=== PATIENT | male | born 1970 | race Caucasian/White ===

== ENCOUNTER 2023-04-05 09:42 | Inpatient (IN) ==
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
--- NOTE | 2023-04-05 10:59 | XRay Report ---
CLINICAL INFORMATION: Dyspnea and edema COMPARISON: None. TECHNIQUE: PA and Lateral views FINDINGS: The heart is mildly enlarged. Mediastinum is unremarkable. There is mild upper lobe redistribution of pulmonary vasculature and equivocal CELINA B lines the lateral bases. No infiltrates. Small bilateral pleural effusions noted. IMPRESSION: Mild CHF or volume overload. Interpreted and Authenticated by: Ghassan Arevalo 04/05/23
[2023-04-05 11:06] LABS: POC Calcium, Ionized 1.03 (1.16-1.32); POC Potassium 4.8 (3.3-5.1)
[2023-04-05] MEDS ORDERED: FUROSEMIDE 40 MG/4 ML VIAL IV ONE (11:18)
[2023-04-05 11:29] LABS: Basophils # (Auto) 0.05 K/mcL (0.00-0.30); Basophils % (Auto) 0.5 % (0.0-2.0); Eosinophils # (Auto) 0.07 K/mcL (0.00-0.70); Eosinophils % (Auto) 0.6 % (0.0-7.0); Hematocrit 60.8 % (40.1-51.0); Hemoglobin 18.7 g/dL (13.7-17.5); Lymphocytes # (Auto) 1.81 K/mcL (1.50-4.80); Lymphocytes % (Auto) 16.7 % (15.5-49.0); Mean Cell Volume 96.2 fL (80.0-100.0); Mean Corpuscular HGB Conc 30.8 g/dL (31.0-36.0); Mean Platelet Volume 9.4 fL (8.8-12.5); Monocytes # (Auto) 1.09 K/mcL (0.10-0.90); Neutrophils % (Auto) 71.8 % (38.0-78.0); Platelet Count 232 K/mcL (140-440); RBC 6.32 M/mcL (4.63-6.08); Red Cell Distribution Width 14.8 % (11.5-14.5); WBC 10.9 K/mcL (4.5-11.0)
[2023-04-05 11:58] LABS: ALT/SGPT 24 U/L (<40); AST/SGOT 22 U/L (<40); Alkaline Phosphatase 79 U/L (39-117); Bilirubin,Direct 0.5 mg/dL (<0.3); Globulin 2.9 gm/dL (2.2-3.7)
[2023-04-05] MEDS ORDERED: NICOTINE 21 MG PATCH TOPICAL ONE (13:23)
--- NOTE | 2023-04-05 14:29 | Internal Med History&Physical ---
HPI History of Present Illness Patient information: Note initiated : 04/05/23 at 2:21 pm Service Date, if different from initiated Date: [] Patient: Souleymane Harmon a 52 y/o M admitted on for Swollen fet and legs. Chief Complaint: [] History of present illness: Mr. Harmon is a 52 year old M Presents to the ED with swelling of his lower extremities up to the abdomen. Patient came in because he says his mother was adamant he come in. Patient states he had swelling off and on for the past couple years although has been worse lately but could not give me a timeframe. Patient sleeps in chair but says he only does because he does not have a bed denies feeling short of breath if he lays flat. Patient has not seen a doctor in who knows how long he could not give me a timeframe but it sounds like decades. He denies any shortness of breath denies any coughing. Denies any cardiac history Patient smokes a pack per day. Denies alcohol use or drug use In the ED was evaluated and found to be hypoxic in the low 80s put on oxygen. Work-up revealed chest ago pulmonary edema with elevated BNP. EKG showed sinus tach and he had a negative troponin. Patient started on Lasix in the ED and oxygen. Patient almost left AMA but his mother convinced him to stay. pt quite drowsy, difficult to awaken when I went into room. very drowsy while I was talking to him. obtain vbg with co2 82 and pH borderline on venous at 3.2, seems to be heading toward hypercapnic resp failure or more likely in the early stages of. Bipap ordered. Review of Systems: Pertinent positives as above. Denies headache/fever/chills/nausea/vomiting/chest or abdominal pain/diarrhea. Remaining 10 point review of system reviewed negative PHYSICAL EXAM General: lethargic, No acute Distress, morbidly obese Eyes/N/T: EOMI, no scleral icterus, PERRL, Head/Neck: neck supple, full ROM, normocephalic atraumatic CV: Mildly tacky but regular, No murmurs, normal s1/s2 Pulm: rales and squeaks b/l, no wheezing, no respiratory distress Abd: soft, nontender, +BS x4 Ext: no clubbing/cyanosis, 3+ b/l LE edema up to abdomen, nontender, venous stasis changes Neuro: difficult to awake, answers questions slowly and quite groggy, Alert, CN 2-12 grossly intact, no focal deficits, moves all extremities, , sensations intact b/l upper/lower Psychiatric: Skin: warm/dry, normal color PFSH PFSH All Active Problems (Updated 04/05/23 @ 14:12 by Marlon Henderson DNP) Edema (Acute) Hypoxia (Acute) Nicotine dependence (Acute) CHF (congestive heart failure) (Acute) Social History smoking status: Current every day smoker MEDS/ALLERGIES Home Medications and Allergies Allergies Allergy/AdvReac Type Severity Reaction Status Date / Time No Known Drug Allergies Allergy Verified 04/05/23 09:51 EXAM Constitutional Vitals: Temp Pulse Resp BP Pulse Ox O2 Del Method O2 Flow Rate 96.9 F L 103 H 27 H 118/76 91 Nasal Cannula 4 04/05/23 09:45 04/05/23 14:04 04/05/23 11:49 04/05/23 14:01 04/05/23 14:05 04/05/23 14:05 04/05/23 14:05 DATA Data Completed and Pending Labs: Labs from last 24 hours 04/05/23 04/05/23 04/05/23 11:05 11:03 10:55 WBC RBC Hgb Hct POC Hct 64.0 H MCV MCH MCHC RDW Plt Count MPV Immature Gran % (Auto) Neut % (Auto) Lymph % (Auto) [place] % (Auto) Eos % (Auto) Baso % (Auto) Lymph # (Auto) [place] # (Auto) Eos # (Auto) Baso # (Auto) Immature Gran # Absolute Neutrophils POC Sodium 135 POC Potassium 4.8 POC Chloride 91 L POC Total CO2 37.0 H POC Anion Gap 13.0 POC BUN 18 POC Creatinine 1.0 POC Glucose 106 H POC WB Ioniz Calcium 1.03 L Total Bilirubin 1.0 Direct Bilirubin 0.5 H AST 22 ALT 24 Alkaline Phosphatase 79 NT-Pro-B Natriuret Pep 1940.0 H Total Protein 5.9 Albumin 3.0 L Globulin 2.9 POC Troponin I < 0.02 04/05/23 10:55 WBC 10.9 RBC 6.32 H Hgb 18.7 H Hct 60.8 H POC Hct MCV 96.2 MCH 29.6 MCHC 30.8 L RDW 14.8 H Plt Count 232 MPV 9.4 Immature Gran % (Auto) 0.4 Neut % (Auto) 71.8 Lymph % (Auto) 16.7 [place] % (Auto) 10.0 Eos % (Auto) 0.6 Baso % (Auto) 0.5 Lymph # (Auto) 1.81 [place] # (Auto) 1.09 H Eos # (Auto) 0.07 Baso # (Auto) 0.05 Immature Gran # 0.04 Absolute Neutrophils 7.81 POC Sodium POC Potassium POC Chloride POC Total CO2 POC Anion Gap POC BUN POC Creatinine POC Glucose POC WB Ioniz Calcium Total Bilirubin Direct Bilirubin AST ALT Alkaline Phosphatase NT-Pro-B Natriuret Pep Total Protein Albumin Globulin POC Troponin I A/P Narrative A/P Narrative: A: *Acute CHF(new) w/pulmonary edema: -no chest pain and negative trop *Acute hypoxic/hypercapnic respiratory failure: 2/2 above -bipap started in ED *Anasarca: *Tobacco abuse: *Morbid obesity: BMI 46, lifestyle modification *Chronic LBP: *Has not seen a physician in probably decades P: -lasix gtt -Monitor urine output -Monitor renal function and electrolytes and replace as needed -vgb, tsh -echo, further recs pending results -wean o2 as able, IS -Lipid panel to assess for cardiac risk factors -PT/OT -Smoking cessation counseling >3 minutes -f/u with cardiology -establish with PCP -ppx: Lovenox Time Spent With Patient Time: Total time spent is greater than 50% in coordination of care (as documented) at patient's floor/unit and/or counseling patient: Critical Care Time: Yes Total Critical Care Time: 70
[2023-04-05] MEDS ORDERED: POTASSIUM CHLORIDE 20 MEQ TABLET PO PRN (15:44)
[2023-04-05] MEDS ORDERED: SENNOSIDES 1 TABLET PO PRN (15:44)
[2023-04-05] MEDS ORDERED: ACETAMINOPHEN 325 MG TABLET PO PRN (15:44)
[2023-04-05] MEDS ORDERED: HYDROCHLOROTHIAZIDE 12.5 MG CAPSULE PO SCH (15:44)
[2023-04-05] MEDS ORDERED: MAGNESIUM SULFATE 2 GM/50 ML BAG IV PRN (15:44)
[2023-04-05] MEDS ORDERED: POTASSIUM CHLORIDE 40 MEQ in DEXTROSE 5% IN WATER 500 ML IV PRN (15:44)
[2023-04-05] MEDS ORDERED: IPRATROPIUM/ALBUTEROL 3 ML AMPUL.NEB NEB PRN (15:44)
[2023-04-05] MEDS ORDERED: POLYETHYLENE GLYCOL 3350 17 GM PACKET PO PRN (15:44)
[2023-04-05] MEDS ORDERED: ONDANSETRON 4 MG/2 ML VIAL IV PRN (15:44)
[2023-04-05 16:12] LABS: Thyroid Stimulating Hormone 4.71 uIU/mL (0.27-5.01)
[2023-04-05] MEDS: FUROSEMIDE 250 MG in 0.9 % SODIUM CHLORIDE 225 ML IV SCH (16:31)
[2023-04-05 16:43] LABS: Amphetamine Screen,Urine None detected; Barbiturate Screen,Urine None detected; Benzodiazepines Screen,Urine None detected; Cannabinoid Screen,Urine None detected; Cocaine Screen,Urine None detected; Opiate Screen,Urine None detected; Oxycodone, Urine Screen None detected; Phencyclidine Screen,Urine None detected
[2023-04-05 16:48] LABS: Appearance,Urine CLEAR (Clear); Bilirubin,Urine Negative (Negative); Color,Urine YELLOW; Culture Indicated,Urine No; Glucose,Urine (UA) Negative (Negative); Ketones,Urine Negative (Negative); Leukocyte Esterase,Urine Negative /uL (Negative); Nitrate,Urine Negative (Negative); Protein,Urine Negative (Negative); Specific Gravity,Urine 1.004 (1.000-1.035); Urine Blood Negative (Negative); Urobilinogen,Urine Negative
[2023-04-05 16:48] LABS: HDL Cholesterol 31 mg/dL (>40); LDL Cholesterol,Calculated 91 mg/dL (<100); Non-HDL Cholesterol 116 mg/dL (<130); Triglycerides 130 mg/dL (<150)
[2023-04-05] MEDS: 0.9 % SODIUM CHLORIDE 250 ML IV SCH (17:37)
[2023-04-05] MEDS: ENOXAPARIN 40 MG/0.4 ML SYRINGE SQ SCH (21:28)
[2023-04-06] MEDS: LORazepam 2 MG/ML VIAL IV PRN ×2 (00:16→03:50)
[2023-04-06] MEDS ORDERED: HALOPERIDOL LACTATE 5 MG/ML VIAL IV ONE (03:42)
[2023-04-06] MEDS ORDERED: HALOPERIDOL LACTATE 5 MG/ML VIAL ONE (03:43)
[2023-04-06] MEDS ORDERED: LORazepam 2 MG/ML VIAL ONE (03:47)
[2023-04-06] MEDS: 0.9 % SODIUM CHLORIDE 250 ML IV SCH ×3 (05:58→17:58)
[2023-04-06 06:46] LABS: Basophils # (Auto) 0.03 K/mcL (0.00-0.30); Basophils % (Auto) 0.3 % (0.0-2.0); Eosinophils # (Auto) 0.09 K/mcL (0.00-0.70); Hematocrit 61.6 % (40.1-51.0); Hemoglobin 18.2 g/dL (13.7-17.5); Lymphocytes # (Auto) 1.09 K/mcL (1.50-4.80); Lymphocytes % (Auto) 12.4 % (15.5-49.0); Mean Cell Volume 98.7 fL (80.0-100.0); Mean Corpuscular HGB Conc 29.5 g/dL (31.0-36.0); Mean Platelet Volume 9.4 fL (8.8-12.5); Monocytes # (Auto) 0.95 K/mcL (0.10-0.90); Monocytes % (Auto) 10.8 % (1.0-12.0); Neutrophils % (Auto) 75.3 % (38.0-78.0); Platelet Count 200 K/mcL (140-440); RBC 6.24 M/mcL (4.63-6.08); Red Cell Distribution Width 14.9 % (11.5-14.5); WBC 8.8 K/mcL (4.5-11.0)
[2023-04-06 07:14] LABS: ALT/SGPT 22 U/L (<40); AST/SGOT 18 U/L (<40); Albumin 2.9 gm/dL (3.2-5.2); Albumin/Globulin Ratio 1.1 (1.0-2.3); Alkaline Phosphatase 81 U/L (39-117); Bilirubin,Direct 0.4 mg/dL (<0.3); Bilirubin,Total 0.7 mg/dL (0.1-1.0); Blood Urea Nitrogen 15 mg/dL (6-20); Calcium 8.1 mg/dL (8.6-10.4); Carbon Dioxide 40 mmol/L (22-30); Chloride 93 mmol/L (96-108); Globulin 2.7 gm/dL (2.2-3.7); Glomerular Filtration Rate 86; Glucose 104 mg/dL (70-105); Lactate Dehydrogenase 201 U/L (135-225); Phosphorous 5.6 mg/dL (2.5-4.5); Triglycerides 106 mg/dL (<150); Uric Acid 11.6 mg/dL (2.5-8.0)
[2023-04-06] MEDS: ENOXAPARIN 40 MG/0.4 ML SYRINGE SQ SCH ×2 (07:56→21:13)
--- NOTE | 2023-04-06 08:03 | Internal Med Progress Note ---
SUBJECTIVE Subjective Patient information: Note initiated : 04/06/23 at 7:58 am Service Date, if different from initiated Date: [] Patient: Juan Harmon a 52 y/o M admitted on 04/05/23 for Hypoxic respiratory failure, CHF. Chief Complaint: [] Interval history: History of present illness: Mr. Harmon is a 52 year old M Presents to the ED with swelling of his lower extremities up to the abdomen. Patient came in because he says his mother was adamant he come in. Patient states he had swelling off and on for the past couple years although has been worse lately but could not give me a timeframe. Patient sleeps in chair but says he only does because he does not have a bed denies feeling short of breath if he lays flat. Patient has not seen a doctor in who knows how long he could not give me a timeframe but it sounds like decades. He denies any shortness of breath denies any coughing. Denies any cardiac history Patient smokes a pack per day. Denies alcohol use or drug use In the ED was evaluated and found to be hypoxic in the low 80s put on oxygen. Work-up revealed chest ago pulmonary edema with elevated BNP. EKG showed sinus tach and he had a negative troponin. Patient started on Lasix in the ED and oxygen. Patient almost left AMA but his mother convinced him to stay. pt quite drowsy, difficult to awaken when I went into room. very drowsy while I was talking to him. obtain vbg with co2 82 and pH borderline on venous at 3.2, seems to be heading toward hypercapnic resp failure or more likely in the early stages of. Bipap ordered. 04/06 Patient became quite agitated last night stating he had to urinate. He previously had refused Franco catheter. Patient has had excellent urine output overnight. However during the severe agitation issue he became hypoxic and had removed his BiPAP. Patient required 80% FiO2 and is now down to 60%. Labs show erythrocytosis and will send work-up labs for that. Follow-up VBG this morning shows significant CO2 retention 88 however the pH is within normal limits although low normal. Metabolic alkalosis on the chemistry data compensation. Patient required Haldol and Ativan last night. Patient sedated this morning although does respond to voice. Review of Systems: Pertinent positives as above. Denies headache/fever/chills/nausea/vomiting/chest or abdominal pain/diarrhea. PHYSICAL EXAM General: Sedated no acute Distress, morbidly obese Eyes/N/T: EOMI, no scleral icterus, Head/Neck: neck supple, full ROM, CV: Mildly tacky but regular, No murmurs, Pulm: diminished severely l, no wheezing, no respiratory distress Abd: soft, nontender, +BS x4 Ext: no clubbing/cyanosis, 3+ b/l LE edema up to abdomen, nontender, venous stasis changes Neuro: Still quite drowsy from sedation overnight, no focal deficits, moves all extremities spontaneously Psychiatric: Skin: warm/dry, normal color Constitutional Vitals: Vital Signs Temp Pulse Resp BP Pulse Ox O2 Del Method O2 Flow Rate 98.2 F 94 H 14 111/82 98 BiPAP 4 04/05/23 21:14 04/06/23 07:16 04/06/23 07:16 04/06/23 06:01 04/06/23 07:29 04/06/23 07:29 04/05/23 15:01 Period Temp Pulse Resp BP Sys/[place] Pulse Ox O2 Del Method O2 Flow Rate Last 24 Hr 96.9 F-98.2 F 92-115 13-33 102-161/74-110 82-99 BiPAP-Room Air 3-4 Intake and Output 04/05/23 04/06/23 04/06/23 19:59 03:59 11:59 Intake Total 0 38 247 Output Total 1275 2652 1035 Balance -1275 -2614 -788 Weight 136.078 kg 130.181 kg Patient Weight 04/07/23 03:59 Weight 130.181 kg Intake & Output: Intake & Output 04/05/23 04/06/23 04/06/23 19:59 03:59 11:59 Intake Total 0 38 247 Output Total 1275 2652 1035 Balance -1275 -2614 -788 Weight 136.078 kg 130.181 kg Intake: IV 38 247 Sodium Chloride 0.9% 250 ml @ 247 20 mls/hr IV .[id number] [facility] Rx#: [id number] Lasix 250 mg In Sodium Chloride 38 0.9% 225 ml @ 10 MG/HR 10 mls/ hr IV Q24H [facility] Rx#:[id number] Oral 0 Output: Urine Catheter Amount 900 1035 Void Amount 1275 1750 # of times incontinent of urine 2 Other: Urine Appearance Clear Clear Clear Uretheral (Franco) Clear Urine Color Pale Pale Yellow Pale Uretheral (Franco) Pale Urine Odor Normal OBJ DATA Labs 04/06/23 05:22 04/06/23 05:22 Labs: Abnormal Lab Results 04/06/23 04/06/23 04/05/23 05:22 05:22 14:50 RBC 6.24 H Hgb 18.2 H Hct 61.6 H POC Hct MCHC 29.5 L RDW 14.9 H Lymph % (Auto) 12.4 L Lymph # (Auto) 1.09 L [place] # (Auto) 0.95 H POC Chloride Chloride 93 L Carbon Dioxide 40 H POC Total CO2 Anion Gap 7.0 L POC Glucose Uric Acid 11.6 H Calcium 8.1 L POC WB Ioniz Calcium Phosphorus 5.6 H Direct Bilirubin 0.4 H NT-Pro-B Natriuret Pep Total Protein 5.6 L Albumin 2.9 L HDL Cholesterol 31 L 04/05/23 04/05/23 04/05/23 11:03 10:55 10:55 RBC 6.32 H Hgb 18.7 H Hct 60.8 H POC Hct 64.0 H MCHC 30.8 L RDW 14.8 H Lymph % (Auto) Lymph # (Auto) [place] # (Auto) 1.09 H POC Chloride 91 L Chloride Carbon Dioxide POC Total CO2 37.0 H Anion Gap POC Glucose 106 H Uric Acid Calcium POC WB Ioniz Calcium 1.03 L Phosphorus Direct Bilirubin 0.5 H NT-Pro-B Natriuret Pep 1940.0 H Total Protein Albumin 3.0 L HDL Cholesterol Meds: Medications Acetaminophen (Acetaminophen 325 Mg Tablet) 650 mg PO Q6HP PRN PRN Reason: fever > 101 Albuterol/Ipratropium (Ipratropium/Albuterol 3 Ml Ampul.Neb) 3 ml NEB Q4HP PRN PRN Reason: Shortness Of Breath Enoxaparin Sodium (Enoxaparin 40 Mg/0.4 Ml Syringe) 40 mg SQ BID [facility] Last Admin: 04/06/23 07:56 Dose: 40 mg Potassium Chloride 40 meq/ (Dextrose) 520 mls @ 130 mls/hr IV UD PRN PRN Reason: Potassium Level < 3 Magnesium Sulfate (Magnesium Sulfate) 2 gm in 50 mls @ 25 mls/hr IV UD PRN PRN Reason: Magnesium Level </= 1.6 Furosemide 250 mg/ Sodium (Chloride) 250 mls @ 10 mls/hr IV Q24H [facility]; Protocol Last Titration: 04/05/23 20:19 Dose: 5 mg/hr, 5 mls/hr Sodium Chloride (Sodium Chloride 0.9%) 250 mls @ 20 mls/hr IV .[id number] [facility] Last Admin: 04/06/23 05:58 Dose: 20 mls/hr Lorazepam (Lorazepam 2 Mg/Ml Vial) 0.5 mg IV Q4HP PRN PRN Reason: ANXIETY/SEDATION Ondansetron HCl (Ondansetron 4 Mg/2 Ml Vial) 4 mg IV Q4HP PRN PRN Reason: Nausea And Vomiting Polyethylene Glycol (Polyethylene Glycol 3350 17 Gm Packet) 17 gm PO DAILYP PRN PRN Reason: Constipation Potassium Chloride (Potassium Chloride 20 Meq Tablet) 40 meq PO UD PRN PRN Reason: Potassium Level of 3-3.5 Potassium Chloride (Potassium Chloride 20 Meq Tablet) 40 meq PO UD PRN PRN Reason: Potassium Level < 3 Senna (Sennosides 1 Tablet) 2 tab PO DAILYP PRN PRN Reason: Constipation A/P Narrative A/P Narrative: A: *Acute CHF(new) w/pulmonary edema: -no chest pain and negative trop *Acute hypoxic/hypercapnic respiratory failure: 2/2 above -bipap wean off as able, *Anasarca: *Erythrocytosis: *metabolic alkalosis: likely compensatory for chronic respiratory acidosis *Encephalopathy: 2/2 above *Tobacco abuse: *Morbid obesity: BMI 46, lifestyle modification *Hypoalbuminemia: *Chronic LBP: *Has not seen a physician in probably decades P: -lasix gtt, diamox x1, albumin -f/u vbg -Monitor urine output -Monitor renal function and electrolytes and replace as needed -echo, further recs pending results -wean bipap/o2 as able, IS -epo and jak2 and manual diff labs pending -PT/OT -Smoking cessation counseling -f/u with cardiology -establish with PCP -f/u with pulmonology for sleep study -ppx: Lovenox Time Spent With Patient Time: Total time spent is greater than 50% in coordination of care (as documented) at patient's floor/unit and/or counseling patient: Critical Care Time: Yes Total Critical Care Time: 55
[2023-04-06] MEDS ORDERED: acetaZOLAMIDE SOD 500 MG VIAL IV SCH (08:06)
[2023-04-06] MEDS: ALBUMIN HUMAN 12.5 GM/50 ML VIAL IV SCH ×2 (09:22→14:31)
[2023-04-06 12:01] LABS: Anisocytosis 1+ (None Seen); Lymphocytes % 14 % (15-49); Monocytes % (Manual) 7 % (1-12); Platelet Estimate NORMAL (Normal); RBC Morphology ABNORMAL (Normal); Reactive Lymphocytes 1 % (0-2); Segmented Neutrophils % 78 % (38-78)
[2023-04-06] MEDS: FUROSEMIDE 250 MG in 0.9 % SODIUM CHLORIDE 225 ML IV SCH (16:00)
[2023-04-07] MEDS: LORazepam 2 MG/ML VIAL IV PRN ×2 (01:10→07:53)
[2023-04-07] MEDS: 0.9 % SODIUM CHLORIDE 250 ML IV SCH ×3 (05:37→21:14)
--- NOTE | 2023-04-07 07:36 | Internal Med Progress Note ---
SUBJECTIVE Subjective Patient information: Note initiated : 04/07/23 at 7:34 am Service Date, if different from initiated Date: [] Patient: Juan Harmon a 52 y/o M admitted on 04/05/23 for Hypoxic respiratory failure, CHF. Chief Complaint: [] Interval history: History of present illness: Mr. Harmon is a 52 year old M Presents to the ED with swelling of his lower extremities up to the abdomen. Patient came in because he says his mother was adamant he come in. Patient states he had swelling off and on for the past couple years although has been worse lately but could not give me a timeframe. Patient sleeps in chair but says he only does because he does not have a bed denies feeling short of breath if he lays flat. Patient has not seen a doctor in who knows how long he could not give me a timeframe but it sounds like decades. He denies any shortness of breath denies any coughing. Denies any cardiac history Patient smokes a pack per day. Denies alcohol use or drug use In the ED was evaluated and found to be hypoxic in the low 80s put on oxygen. Work-up revealed chest ago pulmonary edema with elevated BNP. EKG showed sinus tach and he had a negative troponin. Patient started on Lasix in the ED and oxygen. Patient almost left AMA but his mother convinced him to stay. pt quite drowsy, difficult to awaken when I went into room. very drowsy while I was talking to him. obtain vbg with co2 82 and pH borderline on venous at 3.2, seems to be heading toward hypercapnic resp failure or more likely in the early stages of. Bipap ordered. 04/06 Patient became quite agitated last night stating he had to urinate. He previously had refused Franco catheter. Patient has had excellent urine output overnight. However during the severe agitation issue he became hypoxic and had removed his BiPAP. Patient required 80% FiO2 and is now down to 60%. Labs show erythrocytosis and will send work-up labs for that. Follow-up VBG this morning shows significant CO2 retention 88 however the pH is within normal limits although low normal. Metabolic alkalosis on the chemistry data compensation. Patient required Haldol and Ativan last night. Patient sedated this morning although does respond to voice. 04/07 Patient partially sedated from medication given agitation and pulling out BiPAP and also CO2 narcosis. VBG this morning with increased CO2 and decreased pH. BiPAP settings adjusted for tidal volume and respiratory rate increase, will obtain abg in 1 hour. Patient has diuresed significantly. Follow-up chest x-ray pending Per family, symptoms have been significant for at least 6 months. pt with poor VBG but does awaken. Will adjust bipa and repeat f/u abg worse, pt failing bipap. will need intubation. Review of Systems: Unable to obtain due to sedation PHYSICAL EXAM General: Sedated no acute Distress, morbidly obese Eyes/N/T: EOMI, no scleral icterus, Head/Neck: neck supple, full ROM, CV: Mildly tacky but regular, No murmurs, Pulm: diminished severely l, no wheezing, no respiratory distress Abd: soft, nontender, +BS x4 Ext: no clubbing/cyanosis, 3+ b/l LE edema up to abdomen, nontender, venous sta sis changes Neuro: severely drowsy, no focal deficits, moves all extremities spontaneously Psychiatric: Skin: warm/dry, normal color Constitutional Vitals: Vital Signs Temp Pulse Resp BP Pulse Ox O2 Del Method O2 Flow Rate 97.7 F 103 H 17 130/85 90 BiPAP 13 04/07/23 07:15 04/07/23 07:08 04/07/23 07:08 04/07/23 07:00 04/07/23 07:08 04/07/23 05:00 04/06/23 22:01 Period Temp Pulse Resp BP Sys/[place] Pulse Ox O2 Del Method O2 Flow Rate Last 24 Hr 97.5 F-98.2 F 89-109 10-27 87-138/62-112 35-99 BiPAP-Nasal Cannula 10- Intake and Output 04/06/23 04/07/23 04/07/23 19:59 03:59 11:59 Intake Total 622 250 Output Total 3753 6793 243 Balance -1137 -0929 -851 Weight 126.915 kg 125.554 kg Patient Weight 04/08/23 03:59 Weight 125.554 kg Intake & Output: Intake & Output 04/06/23 04/07/23 04/07/23 19:59 03:59 11:59 Intake Total 622 250 Output Total 1755 1555 845 Balance -1133 -1555 -595 Weight 126.915 kg 125.554 kg Intake: IV 262 250 Sodium Chloride 0.9% 250 ml @ 196 250 20 mls/hr IV .[id number] [facility] Rx#: [id number] Lasix 250 mg In Sodium Chloride 16 0.9% 225 ml @ 10 MG/HR 10 mls/ hr IV Q24H [facility] Rx#:[id number] Oral 360 Output: Urine Catheter Amount 8692 1553 845 Other: Meal Dinner Percent of Meal Consumed 10% Feeding Ability Total Assistance Urine Appearance Clear Clear Clear Urine Color Pale Pale Yellow Urine Odor Normal OBJ DATA Labs 04/07/23 06:52 04/07/23 06:52 Labs: Abnormal Lab Results 04/07/23 04/06/23 04/06/23 06:55 08:33 05:22 RBC Hgb Hct POC Hct MCHC RDW Lymph % (Auto) Lymph # (Auto) [place] # (Auto) Lymphocytes % 14 L RBC Morphology Abnormal A Anisocytosis 1+ A POC VBG pH 7.23 L POC VBG pCO2 at Temp 108.3 H* 88.1 H* POC VBG pO2 62 H 42 H POC VBG HCO3 45.7 H* 47.8 H* POC VBG Total CO2 49.0 H* > 50.0 H* POC Venous O2 Sat 84.0 H 71.0 H POC VBG Base Excess 18.0 H* 22.0 H* POC Chloride Chloride Carbon Dioxide POC Total CO2 Anion Gap POC Glucose Uric Acid Calcium POC WB Ioniz Calcium Phosphorus Direct Bilirubin NT-Pro-B Natriuret Pep Total Protein Albumin HDL Cholesterol 04/06/23 04/06/23 04/05/23 05:22 05:22 14:50 RBC 6.24 H Hgb 18.2 H Hct 61.6 H POC Hct MCHC 29.5 L RDW 14.9 H Lymph % (Auto) 12.4 L Lymph # (Auto) 1.09 L [place] # (Auto) 0.95 H Lymphocytes % RBC Morphology Anisocytosis POC VBG pH POC VBG pCO2 at Temp POC VBG pO2 POC VBG HCO3 POC VBG Total CO2 POC Venous O2 Sat POC VBG Base Excess POC Chloride Chloride 93 L Carbon Dioxide 40 H POC Total CO2 Anion Gap 7.0 L POC Glucose Uric Acid 11.6 H Calcium 8.1 L POC WB Ioniz Calcium Phosphorus 5.6 H Direct Bilirubin 0.4 H NT-Pro-B Natriuret Pep Total Protein 5.6 L Albumin 2.9 L HDL Cholesterol 31 L 04/05/23 04/05/23 04/05/23 11:03 10:55 10:55 RBC 6.32 H Hgb 18.7 H Hct 60.8 H POC Hct 64.0 H MCHC 30.8 L RDW 14.8 H Lymph % (Auto) Lymph # (Auto) [place] # (Auto) 1.09 H Lymphocytes % RBC Morphology Anisocytosis POC VBG pH POC VBG pCO2 at Temp POC VBG pO2 POC VBG HCO3 POC VBG Total CO2 POC Venous O2 Sat POC VBG Base Excess POC Chloride 91 L Chloride Carbon Dioxide POC Total CO2 37.0 H Anion Gap POC Glucose 106 H Uric Acid Calcium POC WB Ioniz Calcium 1.03 L Phosphorus Direct Bilirubin 0.5 H NT-Pro-B Natriuret Pep 1940.0 H Total Protein Albumin 3.0 L HDL Cholesterol Meds: Medications Acetaminophen (Acetaminophen 325 Mg Tablet) 650 mg PO Q6HP PRN PRN Reason: fever > 101 Albuterol/Ipratropium (Ipratropium/Albuterol 3 Ml Ampul.Neb) 3 ml NEB Q4HP PRN PRN Reason: Shortness Of Breath Enoxaparin Sodium (Enoxaparin 40 Mg/0.4 Ml Syringe) 40 mg SQ BID [facility] Last Admin: 04/06/23 21:13 Dose: 40 mg Potassium Chloride 40 meq/ (Dextrose) 520 mls @ 130 mls/hr IV UD PRN PRN Reason: Potassium Level < 3 Magnesium Sulfate (Magnesium Sulfate) 2 gm in 50 mls @ 25 mls/hr IV UD PRN PRN Reason: Magnesium Level </= 1.6 Furosemide 250 mg/ Sodium (Chloride) 250 mls @ 10 mls/hr IV Q24H [facility]; Protocol Last Titration: 04/06/23 15:03 Dose: 5 mg/hr, 5 mls/hr Sodium Chloride (Sodium Chloride 0.9%) 250 mls @ 20 mls/hr IV .[id number] [facility] Last Admin: 04/07/23 05:37 Dose: 20 mls/hr Lorazepam (Lorazepam 2 Mg/Ml Vial) 0.5 mg IV Q4HP PRN PRN Reason: ANXIETY/SEDATION Last Admin: 04/07/23 01:10 Dose: 0.5 mg Ondansetron HCl (Ondansetron 4 Mg/2 Ml Vial) 4 mg IV Q4HP PRN PRN Reason: Nausea And Vomiting Polyethylene Glycol (Polyethylene Glycol 3350 17 Gm Packet) 17 gm PO DAILYP PRN PRN Reason: Constipation Potassium Chloride (Potassium Chloride 20 Meq Tablet) 40 meq PO UD PRN PRN Reason: Potassium Level of 3-3.5 Potassium Chloride (Potassium Chloride 20 Meq Tablet) 40 meq PO UD PRN PRN Reason: Potassium Level < 3 Senna (Sennosides 1 Tablet) 2 tab PO DAILYP PRN PRN Reason: Constipation A/P Narrative A/P Narrative: A: *Acute CHF(new) w/pulmonary edema: -no chest pain and negative trop -good UOP *Acute hypoxic/hypercapnic respiratory failure: 2/2 above -cont on bipap, on HFNC during day *Anasarca: *Erythrocytosis: pending send out labs *metabolic alkalosis: likely compensatory for chronic respiratory acidosis *Encephalopathy: 2/2 above *Tobacco abuse: *Morbid obesity: BMI 46, lifestyle modification *Hypoalbuminemia: *Chronic LBP: *Has not seen a physician in probably decades P: -lasix gtt, -biapap -f/u ABG -f/u cxr -Monitor urine output -Monitor renal function and electrolytes and replace as needed -echo, further recs pending results -wean bipap/o2 as able, IS -epo and jak2 -PT/OT -Smoking cessation counseling -f/u with cardiology -establish with PCP -f/u with pulmonology for sleep study -ppx: Lovenox / ppi Time Spent With Patient Time: Total time spent is greater than 50% in coordination of care (as documented) at patient's floor/unit and/or counseling patient: Critical Care Time: Yes Total Critical Care Time: 65
[2023-04-07 07:43] LABS: Hematocrit 63.8 % (40.1-51.0); Hemoglobin 18.8 g/dL (13.7-17.5); Mean Cell Volume 100.2 fL (80.0-100.0); Mean Corpuscular HGB Conc 29.5 g/dL (31.0-36.0); Mean Platelet Volume 9.2 fL (8.8-12.5); Platelet Count 167 K/mcL (140-440); RBC 6.37 M/mcL (4.63-6.08); Red Cell Distribution Width 14.8 % (11.5-14.5); WBC 8.9 K/mcL (4.5-11.0)
[2023-04-07] MEDS ORDERED: ALBUMIN HUMAN 12.5 GM/50 ML VIAL IV SCH (07:50)
[2023-04-07] MEDS: ENOXAPARIN 40 MG/0.4 ML SYRINGE SQ SCH (08:01)
[2023-04-07 08:34] LABS: ALT/SGPT 20 U/L (<40); AST/SGOT 14 U/L (<40); Albumin 3.2 gm/dL (3.2-5.2); Albumin/Globulin Ratio 1.1 (1.0-2.3); Alkaline Phosphatase 83 U/L (39-117); Bilirubin,Direct 0.5 mg/dL (<0.3); Bilirubin,Total 0.9 mg/dL (0.1-1.0); Blood Urea Nitrogen 13 mg/dL (6-20); Calcium 8.3 mg/dL (8.6-10.4); Carbon Dioxide 44 mmol/L (22-30); Chloride 91 mmol/L (96-108); Globulin 2.9 gm/dL (2.2-3.7); Glomerular Filtration Rate 98; Glucose 90 mg/dL (70-105); Lactate Dehydrogenase 181 U/L (135-225); Triglycerides 142 mg/dL (<150); Uric Acid 12.9 mg/dL (2.5-8.0)
[2023-04-07 09:41] LABS: Anisocytosis 1+ (None Seen); Eosinophils % (Manual) 1 % (0-7); Lymphocytes % 15 % (15-49); Monocytes % (Manual) 5 % (1-12); Platelet Estimate NORMAL (Normal); RBC Morphology ABNORMAL (Normal); Reactive Lymphocytes 4 % (0-2); Segmented Neutrophils % 75 % (38-78)
[2023-04-07] MEDS ORDERED: LORazepam 2 MG/ML VIAL IV ONE (10:34)
[2023-04-07] MEDS ORDERED: LORazepam 2 MG/ML VIAL IV SCH (10:45)
[2023-04-07] MEDS ORDERED: ONDANSETRON 4 MG/2 ML VIAL IV SCH (12:05)
[2023-04-07] MEDS ORDERED: fentaNYL 100 MCG/2 ML VIAL IV SCH (12:05)
[2023-04-07] MEDS ORDERED: MIDAZOLAM 2 MG/2 ML VIAL IV SCH (12:15)
[2023-04-07] MEDS ORDERED: PROPOFOL 100 ML IV ONE (12:34)
--- NOTE | 2023-04-07 12:37 | Procedure Note ---
PROC Intubation Time out performed: Yes Date of Procedure: 04/07/23 Sedative: Versed Mg given: 4 ETT: ETCO2 Laryngoscope: 3 Assist device used: glide ET tube size: 8 Tube secured depth (cm): 27 Tube secured location: lips Tube placement confirmation: visualized tube passing through cords, equal breath sounds bilaterally and confirmation by capnometry Intubation complications: none Additional comments: stat cxr to confirm placement.
[2023-04-07] MEDS: PROPOFOL 1,000 MG in PREMIX 1 BAG IV SCH ×4 (12:45→21:23)
[2023-04-07] MEDS: PANTOPRAZOLE 40 MG VIAL IV SCH (12:59)
[2023-04-07] MEDS: fentaNYL 2,500 MCG in 0.9 % SODIUM CHLORIDE 200 ML IV SCH (13:07)
--- NOTE | 2023-04-07 14:01 | XRay Report ---
CLINICAL INFORMATION: intubation COMPARISON: 04/07/2023 FINDINGS: Endotracheal tube is 3 cm above the waqar. The heart is moderately enlarged-increased. Moderate mediastinal widening noted is new since film earlier today.. Moderate patchy infiltrates in both perihilar and lower lung regions have progressed. IMPRESSION: Endotracheal tip 3 cm above the waqar. Moderate bilateral infiltrates in the perihilar and basilar regions have progressed. Moderate mediastinal widening new from film just earlier today. Consider CT pulmonary angiogram to evaluate for mediastinal hemorrhage and other pathology Interpreted and Authenticated by: Ghassan Arevalo 04/07/23
[2023-04-07] MEDS: NOREPINEPHRINE BITARTRATE 8 MG in 0.9 % SODIUM CHLORIDE 242 ML IV SCH (14:12)
--- NOTE | 2023-04-07 14:45 | XRay Report ---
CLINICAL INFORMATION: f/u chf COMPARISON: 04/05/2023 FINDINGS: Mild cardiomegaly is unchanged. Mediastinum and pulmonary vessels are normal on today's study. Moderate bibasilar infiltrates and small bilateral pleural effusions have developed. IMPRESSION: Interval development of moderate bibasilar infiltrates and small effusions. Consider aspiration pneumonia. No evidence of CHF Interpreted and Authenticated by: Ghassan Arevalo 04/07/23
[2023-04-07] MEDS ORDERED: FUROSEMIDE 40 MG/4 ML VIAL IV SCH (15:58)
[2023-04-07] MEDS: FUROSEMIDE 250 MG in 0.9 % SODIUM CHLORIDE 225 ML IV SCH (16:10)
[2023-04-07] MEDS ORDERED: IOPAMIDOL 100 ML BOTTLE IV ONE (16:42)
--- NOTE | 2023-04-07 17:01 | Cat Scan Report ---
CLINICAL INFORMATION: Hypoxia. Mediastinal widening on plain film COMPARISON: None. TECHNIQUE: 80ml of Isovue-370 were injected intravenously. Using SmartPrep to maximize pulmonary artery opacification, .625mm helical slices were obtained from the lung apices through the lung bases. Following reconstruction, 2.5 mm sagittal, coronal, and axial reformations were processed. The exam was reviewed at mediastinal, lung, and bone windows. The exam was performed using radiation dose optimization techniques including, but not limited to, automated exposure control, adjustment of the mA and/or kV according to patient size and use of iterative reconstruction technique. FINDINGS: Pulmonary parenchymal windows moderate consolidated atelectasis or infiltrates in the medial posterior and lateral basilar segments of both lower lobes with small bilateral pleural effusions.. Pleural spaces are unremarkable-no effusions. Mediastinal windows show the heart is grossly normal in size and configuration. Subocclusive emboli seen in the left left upper lobe pulmonary artery with extension into the anterior and posterior segmental branches. The remaining pulmonary arteries are normal diameter and well-opacified without evidence of embolus. Thoracic aorta is also normal diameter and well-opacified. Endotracheal tube is 3 cm above the waqar. There is no adenopathy in the mediastinal, hilar or axillary regions. Esophagus is grossly normal. The thyroid is unremarkable. Bones and soft tissues the chest wall are normal. Images through the superior abdomen are unremarkable. IMPRESSION: Moderate consolidated bilateral posterior lower lobe atelectasis or infiltrates. Small bilateral pleural effusions. No evidence of mediastinal hemorrhage Subocclusive embolus left upper lobe pulmonary artery with extension to the anterior and posterior segmental branches Interpreted and Authenticated by: Ghassan Arevalo 04/07/23
[2023-04-07] MEDS ORDERED: 0.9 % SODIUM CHLORIDE 10 ML SYRINGE IV PRN (19:29)
--- NOTE | 2023-04-07 20:35 | EKG ---
[facility] Test Date: 2023-04-05 Pat Name: Souleymane Harmon Department: ED Room: Gender: Male [employer]: LR : 1970 Requested By: Marlon Henderson Order Number: [id number] Reading MD: Gee Balderas Measurements Intervals [place] Rate: 103 P: 74 NH: 142 QRS: 186 QRSD: 91 T: 62 QT: 357 QTc: 468 Interpretive Statements Sinus tachycardia Anterior infarct, old Electronically Signed On 04-07-2023 20:35:25 PDT by Gee Balderas /store/M0/[id number]
[2023-04-07] MEDS ORDERED: ENOXAPARIN 120 MG/0.8 ML SYRINGE ONE (22:07)
[2023-04-07] MEDS: CHLORHEXIDINE GLUCONATE 1 ML ORAL.SOL SWABMOUTH SCH (22:12)
[2023-04-07] MEDS: ENOXAPARIN 120 MG/0.8 ML SYRINGE SQ SCH (22:12)
[2023-04-07] MEDS: 0.9 % SODIUM CHLORIDE 10 ML SYRINGE IV SCH (22:13)
[2023-04-08] MEDS: PROPOFOL 1,000 MG in PREMIX 1 BAG IV SCH ×6 (01:24→21:27)
[2023-04-08] MEDS: 0.9 % SODIUM CHLORIDE 250 ML IV SCH ×4 (02:28→20:43)
[2023-04-08] MEDS: NOREPINEPHRINE BITARTRATE 8 MG in 0.9 % SODIUM CHLORIDE 242 ML IV SCH (05:19)
[2023-04-08] MEDS: PANTOPRAZOLE 40 MG VIAL IV SCH (07:10)
[2023-04-08 07:25] LABS: ALT/SGPT 13 U/L (<40); AST/SGOT 13 U/L (<40); Albumin 2.8 gm/dL (3.2-5.2); Alkaline Phosphatase 69 U/L (39-117); Bilirubin,Direct 0.7 mg/dL (<0.3); Bilirubin,Total 1.2 mg/dL (0.1-1.0); Blood Urea Nitrogen 16 mg/dL (6-20); Calcium 8.9 mg/dL (8.6-10.4); Carbon Dioxide 40 mmol/L (22-30); Chloride 93 mmol/L (96-108); Globulin 2.7 gm/dL (2.2-3.7); Glomerular Filtration Rate 98; Glucose 80 mg/dL (70-105); Lactate Dehydrogenase 198 U/L (135-225); Phosphorous 1.6 mg/dL (2.5-4.5); Triglycerides 138 mg/dL (<150); Uric Acid 12.7 mg/dL (2.5-8.0)
[2023-04-08] MEDS: ENOXAPARIN 120 MG/0.8 ML SYRINGE SQ SCH ×2 (08:16→20:43)
[2023-04-08] MEDS: POTASSIUM CHLORIDE 20 MEQ TABLET PO PRN (08:18)
--- NOTE | 2023-04-08 08:32 | Ultrasound Report ---
History: Pulmonary emboli FINDINGS: There is a large acute occlusive thrombus in the right thigh extending from the proximal portion of the popliteal vein up the thigh to the common femoral vein. The clot not appear to extend into the pelvis. However, the pelvic region is difficult to scan due to patient body habitus. There is small amount of extension into the profunda. Normal blood flow is present in the calf vessels. There is edema of the calf. In the left leg there is normal augmentation and compressibility of the veins from the groin through the lower calf. Doppler shows normal waveform patterns. IMPRESSION: Extensive deep venous thrombosis in the right thigh from the groin through the proximal popliteal vein No evidence of deep venous thrombosis in the left leg Interpreted and Authenticated by: Boris Cedillo 04/08/23
[2023-04-08] MEDS: FUROSEMIDE 250 MG in 0.9 % SODIUM CHLORIDE 225 ML IV SCH ×2 (08:33→15:29)
--- NOTE | 2023-04-08 08:38 | XRay Report ---
HISTORY: Intubated, hypoxic respiratory failure, congestive heart failure FINDINGS: Endotracheal tube is placed 2.9 cm above waqar. Right internal jugular line is in the superior vena cava and an NG tube passes through the esophagus into the stomach. There is no widening of the mediastinum and no pneumothorax. The heart size is normal. Pulmonary vessels are normal caliber. There is moderate consolidation in the basilar segments left lower lobe which may be atelectasis or pneumonia. There is milder infiltrate in the right lung base. Upper lung mary are clear. There may be a small left-sided pleural effusion. Comparison with the prior CT performed yesterday shows no change in the left lower lobe and improving aeration in the right lower lobe. IMPRESSION: Atelectasis or pneumonia in both lung bases with improvement on the right side. Normal heart size and no pulmonary vascular congestion Interpreted and Authenticated by: Boris Cedillo 04/08/23
--- NOTE | 2023-04-08 08:40 | XRay Report ---
HISTORY: Central line placement, hypoxic respiratory failure, congestive heart failure FINDINGS: Nasogastric tube passes through the esophagus into the stomach. The tip was outside of the field of view. Endotracheal tube and right internal jugular catheters are well-positioned. There is no widening of the mediastinum or pneumothorax. There are streaky infiltrates in both lung bases. Pulmonary vessels are mildly engorged. Heart size is normal. No pleural effusion is detected. IMPRESSION: Well-positioned support tubes. Bibasilar infiltrates Mild pulmonary vascular congestion Interpreted and Authenticated by: Boris Cedillo 04/08/23
[2023-04-08] MEDS: CHLORHEXIDINE GLUCONATE 1 ML ORAL.SOL SWABMOUTH SCH ×2 (09:01→20:43)
[2023-04-08] MEDS: 0.9 % SODIUM CHLORIDE 10 ML SYRINGE IV SCH ×2 (09:02→20:44)
--- NOTE | 2023-04-08 09:04 | Internal Med Progress Note ---
SUBJECTIVE Subjective Patient information: Note initiated : 04/08/23 at 8:59 am Service Date, if different from initiated Date: [] Patient: Juan Harmon a 52 y/o M admitted on 04/05/23 for Hypoxic respiratory failure, CHF. Chief Complaint: [] Additional PMFSH (Level 3 Only): Mr. Harmon is a 52 year old M Presents to the ED with swelling of his lower extremities up to the abdomen. Patient came in because he says his mother was adamant he come in. Patient states he had swelling off and on for the past couple years although has been worse lately but could not give me a timeframe. Patient sleeps in chair but says he only does because he does not have a bed denies feeling short of breath if he lays flat. Patient has not seen a doctor in who knows how long he could not give me a timeframe but it sounds like decades. He denies any shortness of breath denies any coughing. Denies any cardiac history Patient smokes a pack per day. Denies alcohol use or drug use In the ED was evaluated and found to be hypoxic in the low 80s put on oxygen. Work-up revealed chest ago pulmonary edema with elevated BNP. EKG showed sinus tach and he had a negative troponin. Patient started on Lasix in the ED and oxygen. Patient almost left AMA but his mother convinced him to stay. pt quite drowsy, difficult to awaken when I went into room. very drowsy while I was talking to him. obtain vbg with co2 82 and pH borderline on venous at 3.2, seems to be heading toward hypercapnic resp failure or more likely in the early stages of. Bipap ordered. 04/06 Patient became quite agitated last night stating he had to urinate. He previously had refused Franco catheter. Patient has had excellent urine output overnight. However during the severe agitation issue he became hypoxic and had removed his BiPAP. Patient required 80% FiO2 and is now down to 60%. Labs show erythrocytosis and will send work-up labs for that. Follow-up VBG this morning shows significant CO2 retention 88 however the pH is within normal limits although low normal. Metabolic alkalosis on the chemistry data compensation. Patient required Haldol and Ativan last night. Patient sedated this morning although does respond to voice. 04/07 Patient partially sedated from medication given agitation and pulling out BiPAP and also CO2 narcosis. VBG this morning with increased CO2 and decreased pH. BiPAP settings adjusted for tidal volume and respiratory rate increase, will obtain abg in 1 hour. Patient has diuresed significantly. Follow-up chest x-ray pending Per family, symptoms have been significant for at least 6 months. pt with poor VBG but does awaken. Will adjust bipa and repeat f/u abg worse, pt failing bipap. will need intubation. 04/07 Patient was intubated. There was mild bleeding around the airway due to difficult intubation. Chest x-ray showed some mediastinal widening. Which led to obtaining CTA chest which in turn showed PE. Patient was started on Lovenox therapeutic dose twice daily. Lower extremity Doppler was ordered. Patient was hypoxic on initial ABG, discussed with RT extensively, changes were made to ventilator and PEEP was increased. Review of Systems: Limited due to sedation PHYSICAL EXAM General: 52 years old morbidly obese male, in no acute distress, Eyes/N/T: EOMI, no scleral icterus, Head/Neck: neck supple, full ROM, CV: Mildly tacky but regular, No murmurs, Pulm: diminished severely l, no wheezing, no respiratory distress Abd: soft, nontender, +BS x4 Ext: no clubbing/cyanosis, 3+ b/l LE edema up to abdomen, nontender, venous stasis changes Neuro: severely drowsy, no focal deficits, moves all extremities spontaneously Psychiatric: Appears calm Skin: warm/dry, normal color A: Ventilated and intubated Pulmonary embolism *Acute CHF(new) w/pulmonary edema: -no chest pain and negative trop -good UOP *Acute hypoxic/hypercapnic respiratory failure: 2/2 above -cont on bipap, on HFNC during day *Anasarca: *Erythrocytosis: pending send out labs *metabolic alkalosis: likely compensatory for chronic respiratory acidosis *Encephalopathy: 2/2 above *Tobacco abuse: *Morbid obesity: BMI 46, lifestyle modification *Hypoalbuminemia: *Chronic LBP: *Has not seen a physician in probably decades P: Continue mechanical ventilation, sedation to continue Anticoagulation with Lovenox Doppler ultrasound bilateral lower extremity to rule out DVT -lasix gtt, -biapap -f/u ABG -f/u cxr -Monitor urine output -Monitor renal function and electrolytes and replace as needed -echo, further recs pending results -wean bipap/o2 as able, IS -epo and jak2 -PT/OT -Smoking cessation counseling -f/u with cardiology -establish with PCP -f/u with pulmonology for sleep study -ppx: Lovenox / ppi Total Critical Care Time: > 50 min Constitutional Vitals: Vital Signs Temp Pulse Resp BP Pulse Ox O2 Del Method O2 Flow Rate 97.5 F 77 24 H 89/60 93 Mechanical Ventilation 13 04/08/23 08:00 04/08/23 08:00 04/08/23 08:00 04/08/23 08:00 04/08/23 08:00 04/08/23 08:15 04/06/23 22:01 Period Temp Pulse Resp BP Sys/Fountain Pulse Ox O2 Del Method O2 Flow Rate Last 24 Hr 97.5 F-98.2 F 75-103 12-32 88-133/60-98 83-97 BiPAP-Mechanical Ventilation Intake and Output 04/07/23 04/08/23 04/08/23 19:59 03:59 11:59 Intake Total 148 246 668 Output Total 2733 1640 780 Balance -2585 -1394 -112 Weight 118.478 kg Intake & Output: Intake & Output 04/07/23 04/08/23 04/08/23 19:59 03:59 11:59 Intake Total 148 246 668 Output Total 2733 1640 780 Balance -2585 -1394 -112 Weight 118.478 kg Intake: IV 148 246 668 Sodium Chloride 0.9% 250 ml @ 500 20 mls/hr IV .[id number] [facility] Rx#: [id number] Lasix 250 mg In Sodium Chloride 109 0 0.9% 225 ml @ 10 MG/HR 10 mls/ hr IV Q24H [facility] Rx#:[id number] Diprivan 100 ml @ 0 mls/hr IV . 4 [facility] Rx#:[id number] Diprivan 1,000 mg In Premix 1 33 191 168 Bag @ 5 MCG/KG/MIN 3.767 mls/hr IV .Q24H [facility] Rx#:[id number] fentaNYL 2,500 MCG In Sodium 2 55 Chloride 0.9% 200 ml @ 25 MCG/ HR 2.5 mls/hr IV Q24H [facility] Rx#: [id number] Output: Urine Catheter Amount 2738 1355 780 Void Amount 285 Other: Urine Appearance Clear Clear Cloudy Uretheral (Franco) Clear Urine Color Dark Yellow Light Saritha Pale Uretheral (Franco) Dark Yellow Light Saritha OBJ DATA Labs 04/07/23 06:52 04/08/23 05:07 Labs: Abnormal Lab Results 04/08/23 04/08/23 04/07/23 06:56 05:07 17:59 RBC Hgb Hct POC Hct MCV MCHC RDW Lymph % (Auto) Lymph # (Auto) Carver # (Auto) Lymphocytes % Reactive Lymphocytes RBC Morphology Anisocytosis POC pH 7.48 H 7.46 H POC pCO2 54.1 H* 60.4 H* POC pO2 62 L 73 L POC HCO3 39.9 H 42.6 H POC ABG Base Excess 16.0 H 19.0 H POC VBG pH POC VBG pCO2 at Temp POC VBG pO2 POC VBG HCO3 POC VBG Total CO2 POC Venous O2 Sat POC VBG Base Excess Hgb O2 Saturation 92.0 L Potassium 3.0 L POC Chloride Chloride 93 L Carbon Dioxide 40 H POC Total CO2 42.0 H* 44.0 H* Anion Gap POC Glucose Uric Acid 12.7 H Calcium POC WB Ioniz Calcium Phosphorus 1.6 L Total Bilirubin 1.2 H Direct Bilirubin 0.7 H NT-Pro-B Natriuret Pep Total Protein 5.5 L Albumin 2.8 L HDL Cholesterol 04/07/23 04/07/23 04/07/23 15:17 14:17 11:58 RBC Hgb Hct POC Hct MCV MCHC RDW Lymph % (Auto) Lymph # (Auto) Carver # (Auto) Lymphocytes % Reactive Lymphocytes RBC Morphology Anisocytosis POC pH 7.19 L* POC pCO2 69.1 H* 79.6 H* 128.8 H* POC pO2 52 L 51 L POC HCO3 44.5 H 46.5 H 48.8 H POC ABG Base Excess 20.0 H 21.0 H 21.0 H POC VBG pH POC VBG pCO2 at Temp POC VBG pO2 POC VBG HCO3 POC VBG Total CO2 POC Venous O2 Sat POC VBG Base Excess Hgb O2 Saturation 85.0 L 82.0 L 93.0 L Potassium POC Chloride Chloride Carbon Dioxide POC Total CO2 47.0 H* 49.0 H* > 50.0 H* Anion Gap POC Glucose Uric Acid Calcium POC WB Ioniz Calcium Phosphorus Total Bilirubin Direct Bilirubin NT-Pro-B Natriuret Pep Total Protein Albumin HDL Cholesterol 04/07/23 04/07/23 04/07/23 10:22 06:55 06:52 RBC Hgb Hct POC Hct MCV MCHC RDW Lymph % (Auto) Lymph # (Auto) Carver # (Auto) Lymphocytes % Reactive Lymphocytes RBC Morphology Anisocytosis POC pH 7.26 L POC pCO2 109.3 H* POC pO2 POC HCO3 48.9 H POC ABG Base Excess 22.0 H POC VBG pH 7.23 L POC VBG pCO2 at Temp 108.3 H* POC VBG pO2 62 H POC VBG HCO3 45.7 H* POC VBG Total CO2 49.0 H* POC Venous O2 Sat 84.0 H POC VBG Base Excess 18.0 H* Hgb O2 Saturation Potassium POC Chloride Chloride 91 L Carbon Dioxide 44 H* POC Total CO2 > 50.0 H* Anion Gap 6.0 L POC Glucose Uric Acid 12.9 H Calcium 8.3 L POC WB Ioniz Calcium Phosphorus 5.0 H Total Bilirubin Direct Bilirubin 0.5 H NT-Pro-B Natriuret Pep Total Protein Albumin HDL Cholesterol 04/07/23 04/06/23 04/06/23 06:52 08:33 05:22 RBC 6.37 H Hgb 18.8 H Hct 63.8 H POC Hct MCV 100.2 H MCHC 29.5 L RDW 14.8 H Lymph % (Auto) Lymph # (Auto) Carver # (Auto) Lymphocytes % 14 L Reactive Lymphocytes 4 H RBC Morphology Abnormal A Abnormal A Anisocytosis 1+ A 1+ A POC pH POC pCO2 POC pO2 POC HCO3 POC ABG Base Excess POC VBG pH POC VBG pCO2 at Temp 88.1 H* POC VBG pO2 42 H POC VBG HCO3 47.8 H* POC VBG Total CO2 > 50.0 H* POC Venous O2 Sat 71.0 H POC VBG Base Excess 22.0 H* Hgb O2 Saturation Potassium POC Chloride Chloride Carbon Dioxide POC Total CO2 Anion Gap POC Glucose Uric Acid Calcium POC WB Ioniz Calcium Phosphorus Total Bilirubin Direct Bilirubin NT-Pro-B Natriuret Pep Total Protein Albumin HDL Cholesterol 04/06/23 04/06/23 04/05/23 05:22 05:22 14:50 RBC 6.24 H Hgb 18.2 H Hct 61.6 H POC Hct MCV MCHC 29.5 L RDW 14.9 H Lymph % (Auto) 12.4 L Lymph # (Auto) 1.09 L Carver # (Auto) 0.95 H Lymphocytes % Reactive Lymphocytes RBC Morphology Anisocytosis POC pH POC pCO2 POC pO2 POC HCO3 POC ABG Base Excess POC VBG pH POC VBG pCO2 at Temp POC VBG pO2 POC VBG HCO3 POC VBG Total CO2 POC Venous O2 Sat POC VBG Base Excess Hgb O2 Saturation Potassium POC Chloride Chloride 93 L Carbon Dioxide 40 H POC Total CO2 Anion Gap 7.0 L POC Glucose Uric Acid 11.6 H Calcium 8.1 L POC WB Ioniz Calcium Phosphorus 5.6 H Total Bilirubin Direct Bilirubin 0.4 H NT-Pro-B Natriuret Pep Total Protein 5.6 L Albumin 2.9 L HDL Cholesterol 31 L 04/05/23 04/05/23 04/05/23 11:03 10:55 10:55 RBC 6.32 H Hgb 18.7 H Hct 60.8 H POC Hct 64.0 H MCV MCHC 30.8 L RDW 14.8 H Lymph % (Auto) Lymph # (Auto) Carver # (Auto) 1.09 H Lymphocytes % Reactive Lymphocytes RBC Morphology Anisocytosis POC pH POC pCO2 POC pO2 POC HCO3 POC ABG Base Excess POC VBG pH POC VBG pCO2 at Temp POC VBG pO2 POC VBG HCO3 POC VBG Total CO2 POC Venous O2 Sat POC VBG Base Excess Hgb O2 Saturation Potassium POC Chloride 91 L Chloride Carbon Dioxide POC Total CO2 37.0 H Anion Gap POC Glucose 106 H Uric Acid Calcium POC WB Ioniz Calcium 1.03 L Phosphorus Total Bilirubin Direct Bilirubin 0.5 H NT-Pro-B Natriuret Pep 1940.0 H Total Protein Albumin 3.0 L HDL Cholesterol Meds: Medications Acetaminophen (Acetaminophen 325 Mg Tablet) 650 mg PO Q6HP PRN PRN Reason: fever > 101 Albuterol/Ipratropium (Ipratropium/Albuterol 3 Ml Ampul.Neb) 3 ml NEB Q4HP PRN PRN Reason: Shortness Of Breath Chlorhexidine Gluconate (Chlorhexidine Gluconate 1 Ml Oral.Verito) 15 ml SWABMOUTH BID [facility] Last Admin: 04/07/23 22:12 Dose: 15 ml Enoxaparin Sodium (Enoxaparin 120 Mg/0.8 Ml Syringe) 120 mg SQ BID [facility] Last Admin: 04/08/23 08:16 Dose: 120 mg Potassium Chloride 40 meq/ (Dextrose) 520 mls @ 130 mls/hr IV UD PRN PRN Reason: Potassium Level < 3 Magnesium Sulfate (Magnesium Sulfate) 2 gm in 50 mls @ 25 mls/hr IV UD PRN PRN Reason: Magnesium Level </= 1.6 Furosemide 250 mg/ Sodium (Chloride) 250 mls @ 10 mls/hr IV Q24H [facility]; Protocol Last Admin: 04/08/23 08:33 Dose: 10 mg/hr, 10 mls/hr Sodium Chloride (Sodium Chloride 0.9%) 250 mls @ 20 mls/hr IV .[id number] [facility] Last Infusion: 04/08/23 07:13 Dose: Infused Propofol 1,000 mg/ Premix 100 mls @ 3.767 mls/hr IV .Q24H [facility]; Protocol Last Titration: 04/08/23 08:00 Dose: 25 mcg/kg/min, 18.833 mls/hr Fentanyl 2,500 mcg/ Sodium (Chloride) 250 mls @ 2.5 mls/hr IV Q24H [facility]; Protocol Last Titration: 04/08/23 01:11 Dose: 100 mcg/hr, 10 mls/hr Norepinephrine Bitartrate 8 mg (/ Sodium Chloride) 250 mls @ 18.75 mls/hr IV Q14H [facility]; Protocol Last Admin: 04/08/23 05:19 Dose: Not Given Sodium Chloride (Sodium Chloride 0.9%) 250 mls @ 20 mls/hr IV .[id number] [facility] Last Infusion: 04/08/23 07:24 Dose: Infused Lorazepam (Lorazepam 2 Mg/Ml Vial) 0.5 mg IV Q4HP PRN PRN Reason: ANXIETY/SEDATION Last Admin: 04/07/23 07:53 Dose: 0.5 mg Ondansetron HCl (Ondansetron 4 Mg/2 Ml Vial) 4 mg IV Q4HP PRN PRN Reason: Nausea And Vomiting Pantoprazole Sodium (Pantoprazole 40 Mg Vial) [facility] Last Admin: 04/08/23 07:10 Dose: 40 mg Polyethylene Glycol (Polyethylene Glycol 3350 17 Gm Packet) 17 gm PO DAILYP PRN PRN Reason: Constipation Potassium Chloride (Potassium Chloride 20 Meq Tablet) 40 meq PO UD PRN PRN Reason: Potassium Level of 3-3.5 Last Admin: 04/08/23 08:18 Dose: 40 meq Potassium Chloride (Potassium Chloride 20 Meq Tablet) 40 meq PO UD PRN PRN Reason: Potassium Level < 3 Senna (Sennosides 1 Tablet) 2 tab PO DAILYP PRN PRN Reason: Constipation Sodium Chloride (0.9 % Sodium Chloride 10 Ml Syringe) 10 ml IV Q12 [facility] Last Admin: 04/07/23 22:13 Dose: 10 ml Sodium Chloride (0.9 % Sodium Chloride 10 Ml Syringe) 10 ml IV UD PRN PRN Reason: FLUSH A/P Time Spent With Patient Time: Total time spent is greater than 50% in coordination of care (as documented) at patient's floor/unit and/or counseling patient: QUALITY Restraints Restraint In Place: No
--- NOTE | 2023-04-08 09:17 | Internal Med Progress Note ---
SUBJECTIVE Subjective Patient information: Note initiated : 04/08/23 at 9:05 am Service Date, if different from initiated Date: [] Patient: Juan Harmon a 52 y/o M admitted on 04/05/23 for Hypoxic respiratory failure, CHF. Chief Complaint: [] Additional PMFSH (Level 3 Only): Mr. Harmon is a 52 year old M Presents to the ED with swelling of his lower extremities up to the abdomen. Patient came in because he says his mother was adamant he come in. Patient states he had swelling off and on for the past couple years although has been worse lately but could not give me a timeframe. Patient sleeps in chair but says he only does because he does not have a bed denies feeling short of breath if he lays flat. Patient has not seen a doctor in who knows how long he could not give me a timeframe but it sounds like decades. He denies any shortness of breath denies any coughing. Denies any cardiac history Patient smokes a pack per day. Denies alcohol use or drug use In the ED was evaluated and found to be hypoxic in the low 80s put on oxygen. Work-up revealed chest ago pulmonary edema with elevated BNP. EKG showed sinus tach and he had a negative troponin. Patient started on Lasix in the ED and oxygen. Patient almost left AMA but his mother convinced him to stay. pt quite drowsy, difficult to awaken when I went into room. very drowsy while I was talking to him. obtain vbg with co2 82 and pH borderline on venous at 3.2, seems to be heading toward hypercapnic resp failure or more likely in the early stages of. Bipap ordered. 04/06 Patient became quite agitated last night stating he had to urinate. He previously had refused Franco catheter. Patient has had excellent urine output overnight. However during the severe agitation issue he became hypoxic and had removed his BiPAP. Patient required 80% FiO2 and is now down to 60%. Labs show erythrocytosis and will send work-up labs for that. Follow-up VBG this morning shows significant CO2 retention 88 however the pH is within normal limits although low normal. Metabolic alkalosis on the chemistry data compensation. Patient required Haldol and Ativan last night. Patient sedated this morning although does respond to voice. 04/07 Patient partially sedated from medication given agitation and pulling out BiPAP and also CO2 narcosis. VBG this morning with increased CO2 and decreased pH. BiPAP settings adjusted for tidal volume and respiratory rate increase, will obtain abg in 1 hour. Patient has diuresed significantly. Follow-up chest x-ray pending Per family, symptoms have been significant for at least 6 months. pt with poor VBG but does awaken. Will adjust bipa and repeat f/u abg worse, pt failing bipap. will need intubation. 04/07 Patient was intubated. There was mild bleeding around the airway due to difficult intubation. Chest x-ray showed some mediastinal widening. Which led to obtaining CTA chest which in turn showed PE. Patient was started on Lovenox therapeutic dose twice daily. Lower extremity Doppler was ordered. Patient was hypoxic on initial ABG, discussed with RT extensively, changes were made to ventilator and PEEP was increased. 04/08. Remains intubated and mechanically ventilated. ABG this morning showed mild metabolic acidosis, PCO2 improved to 54 however PO2 was low at 62. Ventilator was adjusted, discussed with RT.. No fever or chills. No leukocytosis hemoglobin remained stable around 18.8. Chest x-ray from this morning reviewed density in both lung bases improving now. CTA chest showed subocclusive embolus left upper lobe pulmonary artery with extension to anterior and posterior segmental branches. No evidence of mediastinal hemorrhage. Moderate consolidation bilaterally, small bilateral pleural effusion. Lower extremities Doppler ultrasound with extensive DVT in right thigh from groin through the proximal popliteal vein. No DVT in left leg. Review of Systems: Patient is ventilated and sedated, review of system is limited PHYSICAL EXAM General: 52 years old morbidly obese male, in no acute distress, Eyes/N/T: EOMI, no scleral icterus, Head/Neck: neck supple, full ROM, CV: S1 and S2, RRR, no murmurs heard 1+ peripheral edema Pulm: No rhonchi or wheezing, reduced air entry in bases Abd: soft, nontender, +BS x4 Ext: no clubbing/cyanosis, 1+ b/l LE edema up to abdomen, nontender, venous stasis changes Neuro: severely drowsy, no focal deficits, moves all extremities spontaneously Psychiatric: Appears calm Skin: warm/dry, normal color A: Acute respiratory failure with hypercapnia and hypoxemia. Ventilated and intubated. Changes made to ventilator this morning, PEEP was increased to 15, FiO2 100%. Repeat ABGs improving Pulmonary embolism. CTA chest showed subocclusive embolus left upper lobe pulmonary artery with extension to anterior and posterior segmental branches. No evidence of mediastinal hemorrhage. Moderate consolidation bilaterally, small bilateral pleural effusion. On Lovenox 120 mg twice daily DVT. Lower extremities Doppler ultrasound with extensive DVT in right thigh from groin through the proximal popliteal vein. No DVT in left leg. On therapeutic Lovenox. *Acute CHF(new) w/pulmonary edema: -no chest pain and negative trop -Echo pending On IV Lasix drip with good urine output Hypokalemia. In the setting of diuresis. Will replace with IV KCl Hypomagnesemia. We will give IV magnesium sulfate *Anasarca: Secondary to above. Improving *Erythrocytosis: pending send out labs *metabolic alkalosis: likely compensatory for chronic respiratory acidosis *Encephalopathy: 2/2 above *Tobacco abuse: *Morbid obesity: BMI 46, lifestyle modification *Hypoalbuminemia: *Chronic LBP: *Has not seen a physician in probably decades P: Continue mechanical ventilation, sedation to continue Anticoagulation with Lovenox -lasix gtt, -f/u ABG -f/u cxr -Monitor urine output -Monitor renal function and electrolytes and replace as needed -echo, further recs pending results -epo and jak2 -PT/OT -Smoking cessation counseling -f/u with cardiology -establish with PCP -f/u with pulmonology for sleep study -ppx: Lovenox / ppi Total Critical Care Time: > 50 min Constitutional Vitals: Vital Signs Temp Pulse Resp BP Pulse Ox O2 Del Method O2 Flow Rate 97.5 F 77 24 H 89/60 93 Mechanical Ventilation 13 04/08/23 08:00 04/08/23 08:00 04/08/23 08:00 04/08/23 08:00 04/08/23 08:00 04/08/23 08:15 04/06/23 22:01 Period Temp Pulse Resp BP Sys/[place] Pulse Ox O2 Del Method O2 Flow Rate Last 24 Hr 97.5 F-98.2 F 75-103 12-32 88-133/60-98 83-97 BiPAP-Mechanical Ventilation Intake and Output 04/07/23 04/08/23 04/08/23 19:59 03:59 11:59 Intake Total 148 246 668 Output Total 2733 1640 780 Balance -2585 -1394 -112 Weight 118.478 kg Intake & Output: Intake & Output 04/07/23 04/08/23 04/08/23 19:59 03:59 11:59 Intake Total 148 246 668 Output Total 2733 1640 780 Balance -2585 -1394 -112 Weight 118.478 kg Intake: IV 148 246 668 Sodium Chloride 0.9% 250 ml @ 500 20 mls/hr IV .[id number] [facility] Rx#: [id number] Lasix 250 mg In Sodium Chloride 109 0 0.9% 225 ml @ 10 MG/HR 10 mls/ hr IV Q24H [facility] Rx#:[id number] Diprivan 100 ml @ 0 mls/hr IV . 4 [facility] Rx#:[id number] Diprivan 1,000 mg In Premix 1 33 191 168 Bag @ 5 MCG/KG/MIN 3.767 mls/hr IV .Q24H [facility] Rx#:[id number] fentaNYL 2,500 MCG In Sodium 2 55 Chloride 0.9% 200 ml @ 25 MCG/ HR 2.5 mls/hr IV Q24H [facility] Rx#: [id number] Output: Urine Catheter Amount 2739 4975 780 Void Amount 285 Other: Urine Appearance Clear Clear Cloudy Uretheral (Franco) Clear Urine Color Dark Yellow Light Saritha Pale Uretheral (Franco) Dark Yellow Light Saritha OBJ DATA Labs 04/07/23 06:52 04/08/23 05:07 Labs: Abnormal Lab Results 04/08/23 04/08/23 04/07/23 06:56 05:07 17:59 RBC Hgb Hct POC Hct MCV MCHC RDW Lymph % (Auto) Lymph # (Auto) [place] # (Auto) Lymphocytes % Reactive Lymphocytes RBC Morphology Anisocytosis POC pH 7.48 H 7.46 H POC pCO2 54.1 H* 60.4 H* POC pO2 62 L 73 L POC HCO3 39.9 H 42.6 H POC ABG Base Excess 16.0 H 19.0 H POC VBG pH POC VBG pCO2 at Temp POC VBG pO2 POC VBG HCO3 POC VBG Total CO2 POC Venous O2 Sat POC VBG Base Excess Hgb O2 Saturation 92.0 L Potassium 3.0 L POC Chloride Chloride 93 L Carbon Dioxide 40 H POC Total CO2 42.0 H* 44.0 H* Anion Gap POC Glucose Uric Acid 12.7 H Calcium POC WB Ioniz Calcium Phosphorus 1.6 L Total Bilirubin 1.2 H Direct Bilirubin 0.7 H NT-Pro-B Natriuret Pep Total Protein 5.5 L Albumin 2.8 L HDL Cholesterol 04/07/23 04/07/23 04/07/23 15:17 14:17 11:58 RBC Hgb Hct POC Hct MCV MCHC RDW Lymph % (Auto) Lymph # (Auto) [place] # (Auto) Lymphocytes % Reactive Lymphocytes RBC Morphology Anisocytosis POC pH 7.19 L* POC pCO2 69.1 H* 79.6 H* 128.8 H* POC pO2 52 L 51 L POC HCO3 44.5 H 46.5 H 48.8 H POC ABG Base Excess 20.0 H 21.0 H 21.0 H POC VBG pH POC VBG pCO2 at Temp POC VBG pO2 POC VBG HCO3 POC VBG Total CO2 POC Venous O2 Sat POC VBG Base Excess Hgb O2 Saturation 85.0 L 82.0 L 93.0 L Potassium POC Chloride Chloride Carbon Dioxide POC Total CO2 47.0 H* 49.0 H* > 50.0 H* Anion Gap POC Glucose Uric Acid Calcium POC WB Ioniz Calcium Phosphorus Total Bilirubin Direct Bilirubin NT-Pro-B Natriuret Pep Total Protein Albumin HDL Cholesterol 04/07/23 04/07/23 04/07/23 10:22 06:55 06:52 RBC Hgb Hct POC Hct MCV MCHC RDW Lymph % (Auto) Lymph # (Auto) [place] # (Auto) Lymphocytes % Reactive Lymphocytes RBC Morphology Anisocytosis POC pH 7.26 L POC pCO2 109.3 H* POC pO2 POC HCO3 48.9 H POC ABG Base Excess 22.0 H POC VBG pH 7.23 L POC VBG pCO2 at Temp 108.3 H* POC VBG pO2 62 H POC VBG HCO3 45.7 H* POC VBG Total CO2 49.0 H* POC Venous O2 Sat 84.0 H POC VBG Base Excess 18.0 H* Hgb O2 Saturation Potassium POC Chloride Chloride 91 L Carbon Dioxide 44 H* POC Total CO2 > 50.0 H* Anion Gap 6.0 L POC Glucose Uric Acid 12.9 H Calcium 8.3 L POC WB Ioniz Calcium Phosphorus 5.0 H Total Bilirubin Direct Bilirubin 0.5 H NT-Pro-B Natriuret Pep Total Protein Albumin HDL Cholesterol 04/07/23 04/06/23 04/06/23 06:52 08:33 05:22 RBC 6.37 H Hgb 18.8 H Hct 63.8 H POC Hct MCV 100.2 H MCHC 29.5 L RDW 14.8 H Lymph % (Auto) Lymph # (Auto) [place] # (Auto) Lymphocytes % 14 L Reactive Lymphocytes 4 H RBC Morphology Abnormal A Abnormal A Anisocytosis 1+ A 1+ A POC pH POC pCO2 POC pO2 POC HCO3 POC ABG Base Excess POC VBG pH POC VBG pCO2 at Temp 88.1 H* POC VBG pO2 42 H POC VBG HCO3 47.8 H* POC VBG Total CO2 > 50.0 H* POC Venous O2 Sat 71.0 H POC VBG Base Excess 22.0 H* Hgb O2 Saturation Potassium POC Chloride Chloride Carbon Dioxide POC Total CO2 Anion Gap POC Glucose Uric Acid Calcium POC WB Ioniz Calcium Phosphorus Total Bilirubin Direct Bilirubin NT-Pro-B Natriuret Pep Total Protein Albumin HDL Cholesterol 04/06/23 04/06/23 04/05/23 05:22 05:22 14:50 RBC 6.24 H Hgb 18.2 H Hct 61.6 H POC Hct MCV MCHC 29.5 L RDW 14.9 H Lymph % (Auto) 12.4 L Lymph # (Auto) 1.09 L [place] # (Auto) 0.95 H Lymphocytes % Reactive Lymphocytes RBC Morphology Anisocytosis POC pH POC pCO2 POC pO2 POC HCO3 POC ABG Base Excess POC VBG pH POC VBG pCO2 at Temp POC VBG pO2 POC VBG HCO3 POC VBG Total CO2 POC Venous O2 Sat POC VBG Base Excess Hgb O2 Saturation Potassium POC Chloride Chloride 93 L Carbon Dioxide 40 H POC Total CO2 Anion Gap 7.0 L POC Glucose Uric Acid 11.6 H Calcium 8.1 L POC WB Ioniz Calcium Phosphorus 5.6 H Total Bilirubin Direct Bilirubin 0.4 H NT-Pro-B Natriuret Pep Total Protein 5.6 L Albumin 2.9 L HDL Cholesterol 31 L 04/05/23 04/05/23 04/05/23 11:03 10:55 10:55 RBC 6.32 H Hgb 18.7 H Hct 60.8 H POC Hct 64.0 H MCV MCHC 30.8 L RDW 14.8 H Lymph % (Auto) Lymph # (Auto) [place] # (Auto) 1.09 H Lymphocytes % Reactive Lymphocytes RBC Morphology Anisocytosis POC pH POC pCO2 POC pO2 POC HCO3 POC ABG Base Excess POC VBG pH POC VBG pCO2 at Temp POC VBG pO2 POC VBG HCO3 POC VBG Total CO2 POC Venous O2 Sat POC VBG Base Excess Hgb O2 Saturation Potassium POC Chloride 91 L Chloride Carbon Dioxide POC Total CO2 37.0 H Anion Gap POC Glucose 106 H Uric Acid Calcium POC WB Ioniz Calcium 1.03 L Phosphorus Total Bilirubin Direct Bilirubin 0.5 H NT-Pro-B Natriuret Pep 1940.0 H Total Protein Albumin 3.0 L HDL Cholesterol Meds: Medications Acetaminophen (Acetaminophen 325 Mg Tablet) 650 mg PO Q6HP PRN PRN Reason: fever > 101 Albuterol/Ipratropium (Ipratropium/Albuterol 3 Ml Ampul.Neb) 3 ml NEB Q4HP PRN PRN Reason: Shortness Of Breath Chlorhexidine Gluconate (Chlorhexidine Gluconate 1 Ml Oral.Verito) 15 ml SWABMOUTH BID [facility] Last Admin: 04/08/23 09:01 Dose: 15 ml Enoxaparin Sodium (Enoxaparin 120 Mg/0.8 Ml Syringe) 120 mg SQ BID [facility] Last Admin: 04/08/23 08:16 Dose: 120 mg Potassium Chloride 40 meq/ (Dextrose) 520 mls @ 130 mls/hr IV UD PRN PRN Reason: Potassium Level < 3 Magnesium Sulfate (Magnesium Sulfate) 2 gm in 50 mls @ 25 mls/hr IV UD PRN PRN Reason: Magnesium Level </= 1.6 Furosemide 250 mg/ Sodium (Chloride) 250 mls @ 10 mls/hr IV Q24H [facility]; Protocol Last Admin: 04/08/23 08:33 Dose: 10 mg/hr, 10 mls/hr Sodium Chloride (Sodium Chloride 0.9%) 250 mls @ 20 mls/hr IV .[id number] [facility] Last Admin: 04/08/23 09:02 Dose: 10 mls/hr Propofol 1,000 mg/ Premix 100 mls @ 3.767 mls/hr IV .Q24H [facility]; Protocol Last Titration: 04/08/23 08:00 Dose: 25 mcg/kg/min, 18.833 mls/hr Fentanyl 2,500 mcg/ Sodium (Chloride) 250 mls @ 2.5 mls/hr IV Q24H [facility]; Protocol Last Titration: 04/08/23 01:11 Dose: 100 mcg/hr, 10 mls/hr Norepinephrine Bitartrate 8 mg (/ Sodium Chloride) 250 mls @ 18.75 mls/hr IV Q14H [facility]; Protocol Last Admin: 04/08/23 05:19 Dose: Not Given Sodium Chloride (Sodium Chloride 0.9%) 250 mls @ 20 mls/hr IV .[id number] [facility] Last Infusion: 04/08/23 07:24 Dose: Infused Lorazepam (Lorazepam 2 Mg/Ml Vial) 0.5 mg IV Q4HP PRN PRN Reason: ANXIETY/SEDATION Last Admin: 04/07/23 07:53 Dose: 0.5 mg Ondansetron HCl (Ondansetron 4 Mg/2 Ml Vial) 4 mg IV Q4HP PRN PRN Reason: Nausea And Vomiting Pantoprazole Sodium (Pantoprazole 40 Mg Vial) 40 mg IV QAMAC [facility] Last Admin: 04/08/23 07:10 Dose: 40 mg Polyethylene Glycol (Polyethylene Glycol 3350 17 Gm Packet) 17 gm PO DAILYP PRN PRN Reason: Constipation Potassium Chloride (Potassium Chloride 20 Meq Tablet) 40 meq PO UD PRN PRN Reason: Potassium Level of 3-3.5 Last Admin: 04/08/23 08:18 Dose: 40 meq Potassium Chloride (Potassium Chloride 20 Meq Tablet) 40 meq PO UD PRN PRN Reason: Potassium Level < 3 Senna (Sennosides 1 Tablet) 2 tab PO DAILYP PRN PRN Reason: Constipation Sodium Chloride (0.9 % Sodium Chloride 10 Ml Syringe) 10 ml IV Q12 [facility] Last Admin: 04/08/23 09:02 Dose: 10 ml Sodium Chloride (0.9 % Sodium Chloride 10 Ml Syringe) 10 ml IV UD PRN PRN Reason: FLUSH A/P Time Spent With Patient Time: Total time spent is greater than 50% in coordination of care (as documented) at patient's floor/unit and/or counseling patient: QUALITY Restraints Restraint In Place: No
[2023-04-08] MEDS ORDERED: MAGNESIUM SULFATE 2 GM/50 ML BAG IV SCH (09:28)
[2023-04-08] MEDS ORDERED: POTASSIUM CHLORIDE 40 MEQ in DEXTROSE 5% IN WATER 250 ML IV SCH (10:00)
[2023-04-08] MEDS ORDERED: POTASSIUM PHOSPHATE 40 MEQ in DEXTROSE 5% IN WATER 500 ML IV ONE (11:00)
[2023-04-08] MEDS: fentaNYL 2,500 MCG in 0.9 % SODIUM CHLORIDE 200 ML IV SCH (13:12)
[2023-04-08] MEDS ORDERED: POTASSIUM CHLORIDE 20 MEQ TABLET PO ONE (17:00)
[2023-04-08] MEDS ORDERED: NOREPINEPHRINE BITARTRATE 8 MG in 0.9 % SODIUM CHLORIDE 242 ML IV PRN (17:00)
[2023-04-09] MEDS: PROPOFOL 1,000 MG in PREMIX 1 BAG IV SCH ×6 (00:48→17:01)
[2023-04-09] MEDS: 0.9 % SODIUM CHLORIDE 250 ML IV SCH ×3 (04:03→15:47)
[2023-04-09 06:14] LABS: Basophils # (Auto) 0.03 K/mcL (0.00-0.30); Basophils % (Auto) 0.4 % (0.0-2.0); Eosinophils # (Auto) 0.19 K/mcL (0.00-0.70); Eosinophils % (Auto) 2.4 % (0.0-7.0); Hematocrit 58.1 % (40.1-51.0); Hemoglobin 17.9 g/dL (13.7-17.5); Lymphocytes # (Auto) 1.48 K/mcL (1.50-4.80); Lymphocytes % (Auto) 18.6 % (15.5-49.0); Mean Cell Volume 94.3 fL (80.0-100.0); Mean Corpuscular HGB Conc 30.8 g/dL (31.0-36.0); Mean Platelet Volume 9.8 fL (8.8-12.5); Monocytes # (Auto) 1.05 K/mcL (0.10-0.90); Monocytes % (Auto) 13.2 % (1.0-12.0); Neutrophils % (Auto) 65.1 % (38.0-78.0); Platelet Count 170 K/mcL (140-440); RBC 6.16 M/mcL (4.63-6.08); Red Cell Distribution Width 15.4 % (11.5-14.5)
[2023-04-09 06:38] LABS: ALT/SGPT 9 U/L (<40); AST/SGOT 10 U/L (<40); Albumin 2.9 gm/dL (3.2-5.2); Alkaline Phosphatase 64 U/L (39-117); Blood Urea Nitrogen 14 mg/dL (6-20); Calcium 8.6 mg/dL (8.6-10.4); Carbon Dioxide 38 mmol/L (22-30); Chloride 93 mmol/L (96-108); Globulin 2.8 gm/dL (2.2-3.7); Glomerular Filtration Rate 98; Glucose 93 mg/dL (70-105)
[2023-04-09 07:44] LABS: Phosphorous 3.9 mg/dL (2.5-4.5)
[2023-04-09] MEDS: CHLORHEXIDINE GLUCONATE 1 ML ORAL.SOL SWABMOUTH SCH (07:47)
[2023-04-09] MEDS: ENOXAPARIN 120 MG/0.8 ML SYRINGE SQ SCH (07:47)
[2023-04-09] MEDS: PANTOPRAZOLE 40 MG VIAL IV SCH (07:47)
--- NOTE | 2023-04-09 08:52 | XRay Report ---
HISTORY: Intubated, hypoxic respiratory failure, pulmonary infiltrates FINDINGS: Endotracheal tube, right internal jugular line and nasogastric tube remain well-positioned. There is no pneumothorax or widening of the mediastinum. There are small bibasilar pulmonary infiltrates. The greatest involvement is medially in the left lower lobe. There are very small bilateral pleural effusions. The infiltrates and pleural effusions have improved since prior chest x-ray on 04/08/[address] on 04/07/23. The mid and upper lung mary are clear. There is no pulmonary vascular congestion. Heart size is normal. IMPRESSION: Improving bibasilar infiltrates and resolving pleural effusions Interpreted and Authenticated by: Boris Cedillo 04/09/23
[2023-04-09] MEDS: POTASSIUM CHLORIDE 20 MEQ TABLET PO PRN (09:36)
[2023-04-09] MEDS: 0.9 % SODIUM CHLORIDE 10 ML SYRINGE IV SCH (10:43)
--- NOTE | 2023-04-09 12:19 | Internal Med Progress Note ---
SUBJECTIVE Subjective Patient information: Note initiated : 04/09/23 at 12:17 pm Service Date, if different from initiated Date: [] Patient: Juan Harmon a 52 y/o M admitted on 04/05/23 for Hypoxic respiratory failure, CHF. Chief Complaint: [] Additional PMFSH (Level 3 Only): Mr. Harmon is a 52 year old M Presents to the ED with swelling of his lower extremities up to the abdomen. Patient came in because he says his mother was adamant he come in. Patient states he had swelling off and on for the past couple years although has been worse lately but could not give me a timeframe. Patient sleeps in chair but says he only does because he does not have a bed denies feeling short of breath if he lays flat. Patient has not seen a doctor in who knows how long he could not give me a timeframe but it sounds like decades. He denies any shortness of breath denies any coughing. Denies any cardiac history Patient smokes a pack per day. Denies alcohol use or drug use In the ED was evaluated and found to be hypoxic in the low 80s put on oxygen. Work-up revealed chest ago pulmonary edema with elevated BNP. EKG showed sinus tach and he had a negative troponin. Patient started on Lasix in the ED and oxygen. Patient almost left AMA but his mother convinced him to stay. pt quite drowsy, difficult to awaken when I went into room. very drowsy while I was talking to him. obtain vbg with co2 82 and pH borderline on venous at 3.2, seems to be heading toward hypercapnic resp failure or more likely in the early stages of. Bipap ordered. 04/06 Patient became quite agitated last night stating he had to urinate. He previously had refused Franco catheter. Patient has had excellent urine output overnight. However during the severe agitation issue he became hypoxic and had removed his BiPAP. Patient required 80% FiO2 and is now down to 60%. Labs show erythrocytosis and will send work-up labs for that. Follow-up VBG this morning shows significant CO2 retention 88 however the pH is within normal limits although low normal. Metabolic alkalosis on the chemistry data compensation. Patient required Haldol and Ativan last night. Patient sedated this morning although does respond to voice. 04/07 Patient partially sedated from medication given agitation and pulling out BiPAP and also CO2 narcosis. VBG this morning with increased CO2 and decreased pH. BiPAP settings adjusted for tidal volume and respiratory rate increase, will obtain abg in 1 hour. Patient has diuresed significantly. Follow-up chest x-ray pending Per family, symptoms have been significant for at least 6 months. pt with poor VBG but does awaken. Will adjust bipa and repeat f/u abg worse, pt failing bipap. will need intubation. 04/07 Patient was intubated. There was mild bleeding around the airway due to difficult intubation. Chest x-ray showed some mediastinal widening. Which led to obtaining CTA chest which in turn showed PE. Patient was started on Lovenox therapeutic dose twice daily. Lower extremity Doppler was ordered. Patient was hypoxic on initial ABG, discussed with RT extensively, changes were made to ventilator and PEEP was increased. 04/08. Remains intubated and mechanically ventilated. ABG this morning showed mild metabolic acidosis, PCO2 improved to 54 however PO2 was low at 62. Ventilator was adjusted, discussed with RT.. No fever or chills. No leukocytosis hemoglobin remained stable around 18.8. Chest x-ray from this morning reviewed density in both lung bases improving now. CTA chest showed subocclusive embolus left upper lobe pulmonary artery with extension to anterior and posterior segmental branches. No evidence of mediastinal hemorrhage. Moderate consolidation bilaterally, small bilateral pleural effusion. Lower extremities Doppler ultrasound with extensive DVT in right thigh from groin through the proximal popliteal vein. No DVT in left leg. 04/09. On mechanical ventilation. Remains sedated. Ventilator settings adjusted. No fever or chills. No leukocytosis. Chest x-ray from this morning showed improvement in bibasilar infiltrates and pleural effusions. Blood pressure is somewhat borderline low. Echo reviewed normal biventricular systolic function, LVEF 60-65%, mild to moderate concentric left ventricular hypertrophy, right ventricular systolic function mildly reduced, moderate tricuspid regurgitation, pulmonary artery pressure are moderately elevated. Review of Systems: Patient is ventilated and sedated, review of system is limited PHYSICAL EXAM General: On mechanical ventilation and sedated Eyes/N/T: EOMI, no scleral icterus, Head/Neck: neck supple, full ROM, CV: S1 and S2, RRR, no murmurs heard 1+ peripheral edema Pulm: No rhonchi or wheezing, reduced air entry in bases Abd: soft, nontender, +BS x4 Ext: no clubbing/cyanosis, 1+ b/l LE edema up to abdomen, nontender, venous stasis changes Neuro: severely drowsy, no focal deficits, moves all extremities spontaneously Psychiatric: Appears calm Skin: warm/dry, normal color A: Acute respiratory failure with hypercapnia and hypoxemia. Ventilated and intubated. Ventilator settings RR 16, T.Vol 500, FiO2 90%, PEEP 18. Discussed case with evaluation assistant and with hospitalist at [facility]. They felt patient is adequately managed on current vent setting and did not recommend any change or any further addition to management. However advised do not need to strictly follow hypercapnia and normalize pH. Transfer center will get back to us to see if patient is excepted. Pulmonary embolism. CTA chest showed subocclusive embolus left upper lobe pulmonary artery with extension to anterior and posterior segmental branches. No evidence of mediastinal hemorrhage. Moderate consolidation bilaterally, smal l bilateral pleural effusion. On Lovenox 120 mg twice daily DVT. Lower extremities Doppler ultrasound with extensive DVT in right thigh from groin through the proximal popliteal vein. No DVT in left leg. On therapeutic Lovenox. *Acute CHF(new) w/pulmonary edema: -no chest pain and negative trop -Echo reviewed normal biventricular systolic function, LVEF 60-65%, mild to moderate concentric left ventricular hypertrophy, right ventricular systolic function mildly reduced, moderate tricuspid regurgitation, pulmonary artery pressure are moderately elevated. On IV Lasix drip with good urine output Hypokalemia. In the setting of diuresis. Will replace with IV KCl Hypomagnesemia. corrected *Anasarca: Secondary to above. Improving *Erythrocytosis: pending send out labs *metabolic alkalosis: likely compensatory for chronic respiratory acidosis *Encephalopathy: 2/2 above *Tobacco abuse: *Morbid obesity: BMI 46, lifestyle modification *Hypoalbuminemia: *Chronic LBP: *Has not seen a physician in probably decades Tobacco abuse. Smoking cessation advised P: Continue current ventilator setting. Discussed case with evaluation assistant and hospitalist. Transfer center will let us know if patient has been accepted Continue Lasix gtt. strict input and output monitoring Daily weight Daily chest x-ray Continue therapeutic Lovenox Replace potassium -Monitor renal function and electrolytes and replace as needed Recommend establish care with PCP upon discharge -f/u with pulmonology for sleep study -ppx: Lovenox / ppi Total Critical Care Time: > 90 min including discussion with RT, bedside nurse, and other MDs Constitutional Vitals: Vital Signs Temp Pulse Resp BP Pulse Ox O2 Del Method O2 Flow Rate 97.4 F 80 16 109/74 93 Mechanical Ventilation 13 04/09/23 12:01 04/09/23 12:01 04/09/23 12:01 04/09/23 12:01 04/09/23 12:01 04/09/23 12:12 04/06/23 22:01 Period Temp Pulse Resp BP Sys/[place] Pulse Ox O2 Del Method O2 Flow Rate Last 24 Hr 97.0 F-98.2 F 78-99 14-24 81-120/51-84 89-95 Mechanical Ventilation-Mechanical Ventilation Intake and Output 04/09/23 04/09/23 04/09/23 03:59 11:59 19:59 Intake Total 242 512 Output Total 1275 995 Balance -1033 -483 Weight 117.208 kg Intake & Output: Intake & Output 04/09/23 04/09/23 04/09/23 03:59 11:59 19:59 Intake Total 242 512 Output Total 1275 995 Balance -1033 -483 Weight 117.208 kg Intake: IV 242 512 Sodium Chloride 0.9% 250 ml @ 250 20 mls/hr IV .[id number] [facility] Rx#: [id number] Lasix 250 mg In Sodium Chloride 57 0.9% 225 ml @ 10 MG/HR 10 mls/ hr IV Q24H [facility] Rx#:[id number] Diprivan 1,000 mg In Premix 1 185 262 Bag @ 5 MCG/KG/MIN 3.767 mls/hr IV .Q24H [facility] Rx#:[id number] Output: Urine Catheter Amount 1275 995 Other: Urine Appearance Clear Clear Small Blood Clots Urine Color Dark Saritha Green OBJ DATA Labs 04/09/23 05:11 04/09/23 05:11 Labs: Abnormal Lab Results 04/09/23 04/09/23 04/09/23 11:47 06:57 05:11 RBC Hgb Hct MCV MCHC RDW [place] % (Auto) Lymph # (Auto) [place] # (Auto) Reactive Lymphocytes RBC Morphology Anisocytosis POC pH POC pCO2 60.4 H* 69.5 H* POC pO2 76 L 75 L POC HCO3 37.1 H 39.7 H POC Total CO2 39.0 H 42.0 H* POC ABG Base Excess 12.0 H 14.0 H POC VBG pH POC VBG pCO2 at Temp POC VBG pO2 POC VBG HCO3 POC VBG Total CO2 POC Venous O2 Sat POC VBG Base Excess Hgb O2 Saturation Potassium 3.1 L Chloride 93 L Carbon Dioxide 38 H Anion Gap Uric Acid Calcium Phosphorus Total Bilirubin Direct Bilirubin Total Protein 5.7 L Albumin 2.9 L 04/09/23 04/08/23 04/08/23 05:11 14:41 12:44 RBC 6.16 H Hgb 17.9 H Hct 58.1 H MCV MCHC 30.8 L RDW 15.4 H [place] % (Auto) 13.2 H Lymph # (Auto) 1.48 L [place] # (Auto) 1.05 H Reactive Lymphocytes RBC Morphology Anisocytosis POC pH 7.32 L POC pCO2 67.8 H* 74.4 H* POC pO2 74 L 72 L POC HCO3 39.8 H 38.8 H POC Total CO2 42.0 H* 41.0 H POC ABG Base Excess 15.0 H 13.0 H POC VBG pH POC VBG pCO2 at Temp POC VBG pO2 POC VBG HCO3 POC VBG Total CO2 POC Venous O2 Sat POC VBG Base Excess Hgb O2 Saturation 93.0 L 92.0 L Potassium Chloride Carbon Dioxide Anion Gap Uric Acid Calcium Phosphorus Total Bilirubin Direct Bilirubin Total Protein Albumin 04/08/23 04/08/23 04/08/23 10:30 09:00 06:56 RBC Hgb Hct MCV MCHC RDW [place] % (Auto) Lymph # (Auto) [place] # (Auto) Reactive Lymphocytes RBC Morphology Anisocytosis POC pH 7.50 H 7.48 H POC pCO2 54.9 H* 46.5 H 54.1 H* POC pO2 78 L 62 L POC HCO3 36.6 H 36.6 H 39.9 H POC Total CO2 38.0 H 38.0 H 42.0 H* POC ABG Base Excess 12.0 H 13.0 H 16.0 H POC VBG pH POC VBG pCO2 at Temp POC VBG pO2 POC VBG HCO3 POC VBG Total CO2 POC Venous O2 Sat POC VBG Base Excess Hgb O2 Saturation 92.0 L Potassium Chloride Carbon Dioxide Anion Gap Uric Acid Calcium Phosphorus Total Bilirubin Direct Bilirubin Total Protein Albumin 04/08/23 04/07/23 04/07/23 05:07 17:59 15:17 RBC Hgb Hct MCV MCHC RDW [place] % (Auto) Lymph # (Auto) [place] # (Auto) Reactive Lymphocytes RBC Morphology Anisocytosis POC pH 7.46 H POC pCO2 60.4 H* 69.1 H* POC pO2 73 L 52 L POC HCO3 42.6 H 44.5 H POC Total CO2 44.0 H* 47.0 H* POC ABG Base Excess 19.0 H 20.0 H POC VBG pH POC VBG pCO2 at Temp POC VBG pO2 POC VBG HCO3 POC VBG Total CO2 POC Venous O2 Sat POC VBG Base Excess Hgb O2 Saturation 85.0 L Potassium 3.0 L Chloride 93 L Carbon Dioxide 40 H Anion Gap Uric Acid 12.7 H Calcium Phosphorus 1.6 L Total Bilirubin 1.2 H Direct Bilirubin 0.7 H Total Protein 5.5 L Albumin 2.8 L 04/07/23 04/07/23 04/07/23 14:17 11:58 10:22 RBC Hgb Hct MCV MCHC RDW [place] % (Auto) Lymph # (Auto) [place] # (Auto) Reactive Lymphocytes RBC Morphology Anisocytosis POC pH 7.19 L* 7.26 L POC pCO2 79.6 H* 128.8 H* 109.3 H* POC pO2 51 L POC HCO3 46.5 H 48.8 H 48.9 H POC Total CO2 49.0 H* > 50.0 H* > 50.0 H* POC ABG Base Excess 21.0 H 21.0 H 22.0 H POC VBG pH POC VBG pCO2 at Temp POC VBG pO2 POC VBG HCO3 POC VBG Total CO2 POC Venous O2 Sat POC VBG Base Excess Hgb O2 Saturation 82.0 L 93.0 L Potassium Chloride Carbon Dioxide Anion Gap Uric Acid Calcium Phosphorus Total Bilirubin Direct Bilirubin Total Protein Albumin 04/07/23 04/07/23 04/07/23 06:55 06:52 06:52 RBC 6.37 H Hgb 18.8 H Hct 63.8 H MCV 100.2 H MCHC 29.5 L RDW 14.8 H [place] % (Auto) Lymph # (Auto) [place] # (Auto) Reactive Lymphocytes 4 H RBC Morphology Abnormal A Anisocytosis 1+ A POC pH POC pCO2 POC pO2 POC HCO3 POC Total CO2 POC ABG Base Excess POC VBG pH 7.23 L POC VBG pCO2 at Temp 108.3 H* POC VBG pO2 62 H POC VBG HCO3 45.7 H* POC VBG Total CO2 49.0 H* POC Venous O2 Sat 84.0 H POC VBG Base Excess 18.0 H* Hgb O2 Saturation Potassium Chloride 91 L Carbon Dioxide 44 H* Anion Gap 6.0 L Uric Acid 12.9 H Calcium 8.3 L Phosphorus 5.0 H Total Bilirubin Direct Bilirubin 0.5 H Total Protein Albumin Meds: Medications Acetaminophen (Acetaminophen 325 Mg Tablet) 650 mg PO Q6HP PRN PRN Reason: fever > 101 Albuterol/Ipratropium (Ipratropium/Albuterol 3 Ml Ampul.Neb) 3 ml NEB Q4HP PRN PRN Reason: Shortness Of Breath Chlorhexidine Gluconate (Chlorhexidine Gluconate 1 Ml Oral.Verito) 15 ml SWABMOUTH BID [facility] Last Admin: 04/09/23 07:47 Dose: 15 ml Enoxaparin Sodium (Enoxaparin 120 Mg/0.8 Ml Syringe) 120 mg SQ BID [facility] Last Admin: 04/09/23 07:47 Dose: 120 mg Potassium Chloride 40 meq/ (Dextrose) 520 mls @ 130 mls/hr IV UD PRN PRN Reason: Potassium Level < 3 Magnesium Sulfate (Magnesium Sulfate) 2 gm in 50 mls @ 25 mls/hr IV UD PRN PRN Reason: Magnesium Level </= 1.6 Furosemide 250 mg/ Sodium (Chloride) 250 mls @ 10 mls/hr IV Q24H [facility]; Protocol Last Titration: 04/08/23 20:56 Dose: 5 mg/hr, 5 mls/hr Sodium Chloride (Sodium Chloride 0.9%) 250 mls @ 20 mls/hr IV .[id number] [facility] Last Admin: 04/09/23 10:42 Dose: 10 mls/hr Propofol 1,000 mg/ Premix 100 mls @ 3.767 mls/hr IV .Q24H [facility]; Protocol Last Admin: 04/09/23 11:22 Dose: 30 mcg/kg/min, 22.6 mls/hr Fentanyl 2,500 mcg/ Sodium (Chloride) 250 mls @ 2.5 mls/hr IV Q24H [facility]; Protocol Last Admin: 04/08/23 13:12 Dose: 100 mcg/hr, 10 mls/hr Sodium Chloride (Sodium Chloride 0.9%) 250 mls @ 20 mls/hr IV .[id number] [facility] Last Admin: 04/09/23 04:03 Dose: Not Given Norepinephrine Bitartrate 8 mg (/ Sodium Chloride) 250 mls @ 18.75 mls/hr IV Q14H PRN; Protocol PRN Reason: TITRATE TO KEEP MAP > 65 Lorazepam (Lorazepam 2 Mg/Ml Vial) 0.5 mg IV Q4HP PRN PRN Reason: ANXIETY/SEDATION Last Admin: 04/07/23 07:53 Dose: 0.5 mg Ondansetron HCl (Ondansetron 4 Mg/2 Ml Vial) 4 mg IV Q4HP PRN PRN Reason: Nausea And Vomiting Pantoprazole Sodium (Pantoprazole 40 Mg Vial) 40 mg IV QAMAC [facility] Last Admin: 04/09/23 07:47 Dose: 40 mg Polyethylene Glycol (Polyethylene Glycol 3350 17 Gm Packet) 17 gm PO DAILYP PRN PRN Reason: Constipation Potassium Chloride (Potassium Chloride 20 Meq Tablet) 40 meq PO UD PRN PRN Reason: Potassium Level of 3-3.5 Last Admin: 04/09/23 09:36 Dose: 40 meq Potassium Chloride (Potassium Chloride 20 Meq Tablet) 40 meq PO UD PRN PRN Reason: Potassium Level < 3 Senna (Sennosides 1 Tablet) 2 tab PO DAILYP PRN PRN Reason: Constipation Sodium Chloride (0.9 % Sodium Chloride 10 Ml Syringe) 10 ml IV Q12 [facility] Last Admin: 04/09/23 10:43 Dose: 10 ml Sodium Chloride (0.9 % Sodium Chloride 10 Ml Syringe) 10 ml IV UD PRN PRN Reason: FLUSH A/P Time Spent With Patient Time: Total time spent is greater than 50% in coordination of care (as documented) at patient's floor/unit and/or counseling patient: QUALITY Restraints Restraint In Place: Yes Reason for restraints: To prevent disruption of IV lines
[2023-04-09] MEDS ORDERED: IPRATROPIUM/ALBUTEROL 3 ML AMPUL.NEB NEB PRN ×2 (12:30→14:00)
[2023-04-09] MEDS: fentaNYL 2,500 MCG in 0.9 % SODIUM CHLORIDE 200 ML IV SCH (13:37)
[2023-04-09] MEDS: FUROSEMIDE 250 MG in 0.9 % SODIUM CHLORIDE 225 ML IV SCH ×2 (13:37→15:47)
--- NOTE | 2023-04-09 14:24 | Discharge Summary ---
Discharge Provider Provider IMPORTANT FOLLOW-UP INFORMATION FOR PCP: Patient information: Note initiated : 04/09/23 at 2:19 pm Service Date, if different from initiated Date: [] Patient: Juan Harmon 52 y/o M admitted on 04/05/23 for Hypoxic respiratory failure, CHF. Chief Complaint: [] Date of admission: 04/05/23 15:30 Discharge date: 04/09/23 Primary care physician: PCP No Consults: 04/05/23 Consult to Physician [CONS] Stat Comment: Consulting Provider: Ton Otto Reason For Exam: Physician to Consult COURSE Hospital Course Hospital course: Mr. Harmon is a 52 year old M Presents to the ED with swelling of his lower extremities up to the abdomen. Patient came in because he says his mother was adamant he come in. Patient states he had swelling off and on for the past couple years although has been worse lately but could not give me a timeframe. Patient sleeps in chair but says he only does because he does not have a bed denies feeling short of breath if he lays flat. Patient has not seen a doctor in who knows how long he could not give me a timeframe but it sounds like decades. He denies any shortness of breath denies any coughing. Denies any cardiac history Patient smokes a pack per day. Denies alcohol use or drug use In the ED was evaluated and found to be hypoxic in the low 80s put on oxygen. Work-up revealed chest ago pulmonary edema with elevated BNP. EKG showed sinus tach and he had a negative troponin. Patient started on Lasix in the ED and oxygen. Patient almost left AMA but his mother convinced him to stay. pt quite drowsy, difficult to awaken when I went into room. very drowsy while I was talking to him. obtain vbg with co2 82 and pH borderline on venous at 3.2, seems to be heading toward hypercapnic resp failure or more likely in the early stages of. Bipap ordered. 04/06 Patient became quite agitated last night stating he had to urinate. He previously had refused Franco catheter. Patient has had excellent urine output overnight. However during the severe agitation issue he became hypoxic and had removed his BiPAP. Patient required 80% FiO2 and is now down to 60%. Labs show erythrocytosis and will send work-up labs for that. Follow-up VBG this morning shows significant CO2 retention 88 however the pH is within normal limits although low normal. Metabolic alkalosis on the chemistry data compensation. Patient required Haldol and Ativan last night. Patient sedated this morning although does respond to voice. 04/07 Patient partially sedated from medication given agitation and pulling out BiPAP and also CO2 narcosis. VBG this morning with increased CO2 and decreased pH. BiPAP settings adjusted for tidal volume and respiratory rate increase, will obtain abg in 1 hour. Patient has diuresed significantly. Follow-up chest x-ray pending Per family, symptoms have been significant for at least 6 months. pt with poor VBG but does awaken. Will adjust bipa and repeat f/u abg worse, pt failing bipap. will need intubation. 04/07 Patient was intubated. There was mild bleeding around the airway due to difficult intubation. Chest x-ray showed some mediastinal widening. Which led to obtaining CTA chest which in turn showed PE. Patient was started on Lovenox therapeutic dose twice daily. Lower extremity Doppler was ordered. Patient was hypoxic on initial ABG, discussed with RT extensively, changes were made to ventilator and PEEP was increased. 04/08. Remains intubated and mechanically ventilated. ABG this morning showed mild metabolic acidosis, PCO2 improved to 54 however PO2 was low at 62. Ventilator was adjusted, discussed with RT.. No fever or chills. No leukocytosis hemoglobin remained stable around 18.8. Chest x-ray from this morning reviewed density in both lung bases improving now. CTA chest showed subocclusive embolus left upper lobe pulmonary artery with extension to anterior and posterior segmental branches. No evidence of mediastinal hemorrhage. Moderate consolidation bilaterally, small bilateral pleural effusion. Lower extremities Doppler ultrasound with extensive DVT in right thigh from groin through the proximal popliteal vein. No DVT in left leg. 04/09. On mechanical ventilation. Remains sedated. Ventilator settings adjusted. No fever or chills. No leukocytosis. Chest x-ray from this morning showed improvement in bibasilar infiltrates and pleural effusions. Blood pressure is somewhat borderline low. Echo reviewed normal biventricular systolic function, LVEF 60-65%, mild to moderate concentric left ventricular hypertrophy, right ventricular systolic function mildly reduced, moderate tricuspid regurgitation, pulmonary artery pressure are moderately elevated. Discharge diagnoses Acute respiratory failure with hypercapnia and hypoxemia. Ventilated and intubated. Ventilator settings RR 16, T.Vol 500, FiO2 90%, PEEP 18. Discussed case with electronics design engineer and with hospitalist at [facility] they graciously excepted patient to be transferred. Continue current ventilator settings, Lasix. Pulmonary embolism. CTA chest showed subocclusive embolus left upper lobe pulmonary artery with extension to anterior and posterior segmental branches. No evidence of mediastinal hemorrhage. Moderate consolidation bilaterally, small bilateral pleural effusion. On Lovenox 120 mg twice daily DVT. Lower extremities Doppler ultrasound with extensive DVT in right thigh from groin through the proximal popliteal vein. No DVT in left leg. On therapeutic Lovenox. *Acute CHF(new) w/pulmonary edema: -no chest pain and negative trop -Echo reviewed normal biventricular systolic function, LVEF 60-65%, mild to moderate concentric left ventricular hypertrophy, right ventricular systolic function mildly reduced, moderate tricuspid regurgitation, pulmonary artery pressure are moderately elevated. Continue Lasix gtt. Hypokalemia. In the setting of diuresis. Will replace with IV KCl Hypomagnesemia. corrected *Anasarca: Secondary to above. Improving *Erythrocytosis: pending send out labs *metabolic alkalosis: likely compensatory for chronic respiratory acidosis *Encephalopathy: 2/2 above *Tobacco abuse: *Morbid obesity: BMI 46, lifestyle modification *Hypoalbuminemia: *Chronic LBP: *Has not seen a physician in probably decades Tobacco abuse. Smoking cessation advised PHYSICAL EXAM General: On mechanical ventilation and sedated Eyes/N/T: EOMI, no scleral icterus, Head/Neck: neck supple, full ROM, CV: S1 and S2, RRR, no murmurs heard 1+ peripheral edema Pulm: No rhonchi or wheezing, reduced air entry in bases Abd: soft, nontender, +BS x4 Ext: no clubbing/cyanosis, 1+ b/l LE edema up to abdomen, nontender, venous stasis changes Neuro: severely drowsy, no focal deficits, moves all extremities spontaneously Psychiatric: Appears calm Skin: warm/dry, normal color Total Critical Care Time: > 90 min including discussion with RT, bedside nurse, and other MDs Discharge diagnosis: Acute respiratory failure, pulmonary embolism, DVT, hypokalemia Time Spent with Patient Time attestation: Total time spent providing and/or coordinating discharge services: Time spent: Greater than 30 minutes EXAM Constitutional Vitals: Temp Pulse Resp BP Pulse Ox O2 Del Method O2 Flow Rate 97.4 F 87 16 102/69 90 Mechanical Ventilation 13 04/09/23 12:01 04/09/23 13:40 04/09/23 13:40 04/09/23 13:01 04/09/23 13:40 04/09/23 13:40 04/06/23 22:01 Discharge Data Data Completed and Pending Labs on day of discharge: Labs from last 24 hours 04/09/23 04/09/23 04/09/23 11:47 06:57 05:30 WBC RBC Hgb Hct MCV MCH MCHC RDW Plt Count MPV Immature Gran % (Auto) Neut % (Auto) Lymph % (Auto) Benson % (Auto) Eos % (Auto) Baso % (Auto) Lymph # (Auto) Benson # (Auto) Eos # (Auto) Baso # (Auto) Immature Gran # Absolute Neutrophils POC pH 7.40 7.36 POC pCO2 60.4 H* 69.5 H* POC pO2 76 L 75 L POC HCO3 37.1 H 39.7 H POC Total CO2 39.0 H 42.0 H* POC ABG Base Excess 12.0 H 14.0 H ABG Lactic Acid 1.0 1.0 Hgb O2 Saturation 94.0 94.0 Sodium Potassium Chloride Carbon Dioxide Anion Gap BUN Creatinine GFR Calculation Glucose Calcium Phosphorus 3.9 Magnesium 2.0 Total Bilirubin AST ALT Alkaline Phosphatase Total Protein Albumin Globulin Albumin/Globulin Ratio 04/09/23 04/09/23 04/08/23 05:11 05:11 14:41 WBC 8.0 RBC 6.16 H Hgb 17.9 H Hct 58.1 H MCV 94.3 MCH 29.1 MCHC 30.8 L RDW 15.4 H Plt Count 170 MPV 9.8 Immature Gran % (Auto) 0.3 Neut % (Auto) 65.1 Lymph % (Auto) 18.6 Benson % (Auto) 13.2 H Eos % (Auto) 2.4 Baso % (Auto) 0.4 Lymph # (Auto) 1.48 L Benson # (Auto) 1.05 H Eos # (Auto) 0.19 Baso # (Auto) 0.03 Immature Gran # 0.02 Absolute Neutrophils 5.20 POC pH 7.38 POC pCO2 67.8 H* POC pO2 74 L POC HCO3 39.8 H POC Total CO2 42.0 H* POC ABG Base Excess 15.0 H ABG Lactic Acid 1.1 Hgb O2 Saturation 93.0 L Sodium 140 Potassium 3.1 L Chloride 93 L Carbon Dioxide 38 H Anion Gap 9.0 BUN 14 Creatinine 0.9 GFR Calculation 98 Glucose 93 Calcium 8.6 Phosphorus Magnesium Total Bilirubin 1.0 AST 10 ALT 9 Alkaline Phosphatase 64 Total Protein 5.7 L Albumin 2.9 L Globulin 2.8 Albumin/Globulin Ratio 1.0 Discharge Plan Patient/Caregiver Discharge Instructions Prescriptions: No Action No Known Home Meds Follow Up Plan Patient Disposition: [facility]
== END 2023-04-09 17:27 | disposition short-term general hospital (02) | DRG 208 ==
LOC: ED 09:42 → ICU 15:30
PROVIDERS: ADMIT Internal Medicine; ATTEND Internal Medicine